=== PATIENT | male | born 1985 | race Caucasian/White ===

== ENCOUNTER → 2020-09-05 13:42 | Outpatient (BNVA) | payer BC, SELFPAY | PROVIDERS: Visit Provider Psychiatry & Neurology Psychiatry | DX: F43.9 Reaction to severe stress, unspecified (principal); F10.20 Alcohol dependence, uncomplicated; F40.10 Social phobia, unspecified | CPT/HCPCS: 80053; 85025; 99204 ==

== ENCOUNTER → 2020-10-12 08:37 | Outpatient (BNVA) | payer BC, SELFPAY | PROVIDERS: Visit Provider Psychiatry & Neurology Psychiatry | DX: F43.9 Reaction to severe stress, unspecified (principal); F40.10 Social phobia, unspecified; F10.20 Alcohol dependence, uncomplicated | CPT/HCPCS: 99214 ==

== ENCOUNTER → 2020-12-07 10:07 | Outpatient (BNVA) | payer BC, SELFPAY | PROVIDERS: Visit Provider Psychiatry & Neurology Psychiatry | DX: F40.10 Social phobia, unspecified (principal); F43.9 Reaction to severe stress, unspecified; F10.20 Alcohol dependence, uncomplicated | CPT/HCPCS: 99213 ==

== ENCOUNTER → 2021-04-02 08:30 | Outpatient (BNVA) | payer BC, SELFPAY | PROVIDERS: Visit Provider Psychiatry & Neurology Psychiatry | DX: F43.9 Reaction to severe stress, unspecified (principal); F40.10 Social phobia, unspecified; F10.20 Alcohol dependence, uncomplicated | CPT/HCPCS: 99213 ==

== ENCOUNTER 2021-09-06 16:29 | Inpatient (IN) | payer BC, SELFPAY ==
[2021-09-06 16:31] VITALS: BP 160/110; PULSE 130; RESP 15; TEMP 37.1; O2SAT 97; BMI 24.4
[2021-09-06 16:41] VITALS: BP 160/110; PULSE 120; RESP 15; O2SAT 97
[2021-09-06] MEDS: LORazepam 2 mg/mL INJ 1 mL IM (17:05)
[2021-09-06] MEDS: ziprasidone 20 mg/mL SDV IM (17:05)
[2021-09-06 17:10] LABS: Basophils # 0.1 10^3/uL (0.0-0.1); Basophils % 0.7 %; Eosinophils % 0.2 %; Hematocrit 43.6 % (42.0-52.0); Lymphocytes # 2.7 10^3/uL (0.8-4.8); Lymphocytes % 19.7 %; Mean Corpuscular HGB Conc 36.7 g/dL (30.0-36.0); Mean Corpuscular Hemoglobin 35.3 pg (28.0-34.0); Mean Corpuscular Volume 96.2 fl (80-94); Monocytes # 1.1 10^3/uL (0.2-0.9); Monocytes % 7.9 %; Neutrophils # 9.61 10^3/uL (1.8-7.7); Neutrophils % 71.1 %; Nucleated Red Blood Cells % 0 %; Platelet Count 276 10^3/cmm (130-400); Red Blood Count 4.53 10^6/uL (4.1-5.3); Red Cell Distribution Width 12.4 % (12.1-15.1); White Blood Count 13.5 10^3/uL (4.0-10.0)
--- NOTE | 2021-09-06 17:11 | W.ED.PSYCH ---
HPI - Psych General: Chief Complaint: Psychiatric Symptoms Stated Complaint: SI Time Seen by Provider: 09/06/21 16:35 History of Present Illness: HPI Narrative: 36-year-old male presents to the emergency room brought in by [facility]. They are 96-hour hold from the local [address]. Patient is acutely intoxicated he continues to make suicidal threats while here. Before a physician could go to the room and evaluate him security was monitoring him and he became very aggressive. Code 10 was called when I arrived in the room patient was making threats to others as well as to himself including threatening to kill himself. Explained to him that we wanted to try to help him. Ultimately we did give him Geodon and Ativan and he was placed in the restraint bed see the appropriate documentation in this chart as well as in the nursing chart. We were able to verbally de-escalate with him to some extent after he was placed in the restraint bed. He is still not safe to be removed at this time. Third 96-hour hold reviewed. According to the affidavits he has threatened to shoot himself in the past his family has had his firearms. MD complaint: suicidal ideation Onset (ago): unknown History of same: Yes Relieving factors: none Exacerbating factors: none Context: recent alcohol abuse Associated psychiatric symptoms: depression, suicidal ideation and homicidal ideation Associated symptoms: Reports depression, homicidal ideation and suicidal ideation; Deny auditory hallucinations, visual hallucinations or delusions Treatments prior to arrival: placed on mental health hold If self harm: admits thoughts of self harm and has plan Review of Systems General: Reports: ROS unobtainable due to mental status Psych: Reports: depression, suicidal ideation and homicidal ideation; Denies: visual hallucinations or auditory hallucinations [facility] ED PFSH: Social History Smoking and tobacco status: current every day smoker cigarettes Packs smoked per day: 1 Years cigarettes smoked: 20 Quit status (tobacco): not considering quitting Second hand smoke exposure: No Current gender identity: Male Physical Exam Const: ORIENTATION/CONSCIOUSNESS: Yes awake HENMT: COMMON NORMALS: normocephalic, atraumatic and hearing grossly normal bilaterally HEAD & SCALP: normocephalic and atraumatic Resp: COMMON NORMALS: normal respiratory effort, No retractions, No use of accessory muscles and clear to auscultation bilaterally AUSCULTATION: clear to auscultation bilaterally Cardio: COMMON NORMALS: regular rate, regular rhythm and No murmurs present (Cardio) RATE: regular rate RHYTHM: regular rhythm GI: COMMON NORMALS: Soft to palpation and No hepatosplenomegaly present AUSCULTATION: Yes normoactive bowel sounds PALPATION: Yes Soft to palpation, No Tenderness to palpation present (GI), No Guarding due to palpation present (GI) and Yes No hepatosplenomegaly present Extremity: COMMON NORMALS: normal to inspection, capillary refill normal, no clubbing, cyanosis or edema, no calf tenderness and no pedal edema Psych: THOUGHT CONTENT: No delusions Skin: COMMON NORMALS: no rashes or lesions noted GENERAL SKIN EXAM: no rashes or lesions noted Face to Face: Restrn/Seclusion Events leading up to initiation: Verbalizing threat to self or others and Combative/Striking out at staff or others Evaluation of patient's immediate situation: Alert and oriented and No signs of physical distress Patient reaction since intervention applied: Continued attempts/displays harmful behavior Recent labs reviewed: Yes Review of medications: Yes Patient's current medical/behavioral condition: No new concerns since last ROS Need for restraint or seclusion is: Continued Attending notified: Yes Course Vital Signs: Vital signs: Vital Signs Temperature 98.2 F 09/07/21 13:43 Pulse Rate 105 H 09/07/21 13:43 Respiratory Rate 18 09/07/21 13:43 Blood Pressure 179/100 09/07/21 13:43 Pulse Oximetry 96 09/07/21 13:43 MDM - Psych MDM Narrative: Medical decision making narrative: Patient is a 96-hour hold prior to arrival here. He was combative and a code 10 was called. He was placed in a restraint bed and given Ativan and Geodon restraints were scaled back once patient was compliant. He was monitored I went back to check on him for a status evaluation he was out of the hard restraints and was sedate from the medications. He was placed on O2 monitor. Discussed the Altman orders written. Lab Data: Labs: Lab Results 09/06/21 09/06/21 16:58 16:58 WBC 13.5 10^3/uL H 10 ^3/uL (4.0-10.0) RBC 4.53 10^6/uL 10^6 /uL (4.1-5.3) Hgb 16.0 g/dL g/dL (11.7-16.6) Hct 43.6 % % (42.0-52.0) MCV 96.2 fl H fl (80-94) MCH 35.3 pg H pg (28.0-34.0) MCHC 36.7 g/dL H g/dL (30.0-36.0) RDW 12.4 % % (12.1-15.1) Plt Count 276 10^3/cmm 10^3 /cmm (130-400) MPV 10.0 fL fL (7.4-10.4) Neut % (Auto) 71.1 % % Lymph % (Auto) 19.7 % % [place] % (Auto) 7.9 % % Eos % (Auto) 0.2 % % Baso % (Auto) 0.7 % % Neut # (Auto) 9.61 10^3/uL H 10 ^3/uL (1.8-7.7) Lymph # (Auto) 2.7 10^3/uL 10^3/ uL (0.8-4.8) [place] # (Auto) 1.1 10^3/uL H 10^ 3/uL (0.2-0.9) Eos # (Auto) 0.0 10^3/uL 10^3/ uL (0.0-0.8) Baso # (Auto) 0.1 10^3/uL 10^3/ uL (0.0-0.1) Nucleated RBC % (a uto) 0 % % Nucleated RBCs # 0.0 /100WBC /100W BC Sodium 141 mmol/L mmol/L (136-145) Potassium 3.2 mmol/L L mmol /L (3.5-5.1) Chloride 99 mmol/L mmol/L (98-107) Carbon Dioxide 26 mmol/L mmol/L (22-29) Anion Gap 19.2 H (5-19) BUN 9 mg/dL mg/dL (6-20) Creatinine 0.5 mg/dL L mg/dL (0.7-1.2) GFR Calculation 189.2 mL/min H mL /min (90-130) Glucose 197 mg/dL H mg/dL (65-115) Calculated Osmolal ity 296 mOsm/kg H mOs m/kg (285-295) Calcium 9.4 mg/dL mg/dL (8.5-10.5) Total Bilirubin 0.2 mg/dL mg/dL (0.15-1.2) AST 31 U/L U/L (0-40) ALT 38 U/L U/L (0-41) Alkaline Phosphata se 79 IU/L IU/L (40-130) Total Protein 7.2 g/dL g/dL (6.6-8.7) Albumin 4.7 g/dL g/dL (3.5-5.2) Globulin 2.5 g/dL g/dL (1.3-4.6) Salicylates < 0.3 mg/dL L mg/ dL (3-10) Acetaminophen < 5.0 ug/mL L ug/ mL (10-30) Ethyl Alcohol 405 mg/dL H* mg/d L (0-10) Discharge Plan Discharge Patient Disposition: Admitted As Inpatient Admit Provider: Josh Altman Clinical Impression: Suicidal ideation, Acute alcohol intoxication Condition: Stable Coding Level of Care Code ED Rubber Press Operator for Therese Fwd Exam Comprehensive
--- NOTE | 2021-09-06 17:13 | PC.NURSE ---
Patient was attempting to leave his room, PSA attempted to redirect patient back into the room. Security was around the room and attempted to redirect patient to the room. Patient attempted to push passed Security. Security had to utilize the safe technique to get patient into the room, onto the bed. Security called for a code 10 to be called. Code 10 called at 1702. When this RN entered the room Dr. Ramos, and secuirty was manually holding patient on the bed, and protecting his head from injury. Dr. Ramos was attempting to calm patient. Patient began cursing and stating that he was going to nilam us all for keeping him in. Patient was assisted on to the restraint bed at 1705. Verbal order given for 20mg of Geodon and 2 mg of Ativan. 20mg of Geodon in left deltoid and 2mg Ativan to right deltoid.
--- NOTE | 2021-09-06 17:14 | ECG_ITS ---
[facility] Test Date: 2021-09-06 Pat Name: Gaurang Fan Department: Room: Gender: Male Tie Bucker: : 1985 Requested By: Trev Serrano Order Number: [id number] Maida MD: Bautista Moreno M.D. Measurements Intervals [place] Rate: 106 P: 43 FL: 120 QRS: -11 QRSD: 95 T: 33 QT: 339 QTc: 450 Interpretive Statements SINUS TACHYCARDIA POSSIBLE LEFT ATRIAL ENLARGEMENT [-0.1mV P-WAVE IN V1/V2] POSSIBLE LEFT VENTRICULAR HYPERTROPHY [VOLTAGE CRITERIA PLUS LAE OR QRS WIDENING] NONSPECIFIC T-WAVE ABNORMALITY No previous ECG available for comparison Electronically Signed On 09-06-2021 23:57:29 CDT by Bautista Moreno M.D. [id number]
[2021-09-06 17:25] LABS: Alanine Aminotransferase 38 U/L (0-41); Albumin Level 4.7 g/dL (3.5-5.2); Alkaline Phosphatase 79 IU/L (40-130); Anion Gap 19.2 (5-19); Aspartate Amino Transferase 31 U/L (0-40); Blood Urea Nitrogen 9 mg/dL (6-20); Calcium 9.4 mg/dL (8.5-10.5); Carbon Dioxide 26 mmol/L (22-29); Chloride 99 mmol/L (98-107); Globulin 2.5 g/dL (1.3-4.6); Glomerular Filtration Rate 189.2 mL/min (90-130); Glucose 197 mg/dL (65-115); Osmolality Calculated 296 mOsm/kg (285-295); Potassium 3.2 mmol/L (3.5-5.1); Sodium 141 mmol/L (136-145); Total Bilirubin 0.2 mg/dL (0.15-1.2); Total Protein 7.2 g/dL (6.6-8.7)
[2021-09-06 17:29] LABS: Acetaminophen < 5.0 ug/mL (10-30); Salicylate < 0.3 mg/dL (3-10)
[2021-09-06 17:30] LABS: Alcohol Level 405 mg/dL (0-10)
[2021-09-06] MEDS: sodium chloride 0.9% 1,000 ML 999 ML IV (18:23)
--- NOTE | 2021-09-06 18:47 | PC.NURSE ---
Left leg released at 182
[2021-09-06 20:45] VITALS: BP 103/77; PULSE 76; RESP 16; O2SAT 100
[2021-09-06 21:35] LABS: Amphetamines Screen Urine Negative (Negative); Barbiturates Screen Urine Negative (Negative); Benzodiazepines Screen Urine Negative (Negative); Cocaine Screen Urine Negative (Negative); Opiate Screen Urine Negative (Negative); PCP Screen Urine Negative (Negative); THC Screen Urine Positive (Negative)
[2021-09-06 22:00] VITALS: BP 166/64; PULSE 74; RESP 16; O2SAT 96
[2021-09-06 23:00] VITALS: BP 106/64; PULSE 68; RESP 16; O2SAT 95
[2021-09-06 23:28] LABS: Alcohol Level 217 mg/dL (0-10)
[2021-09-06 23:56] VITALS: BP 106/64; PULSE 68; RESP 16; O2SAT 95
[2021-09-07 00:19] VITALS: BP 103/67; PULSE 84; RESP 16; TEMP 37.1; O2SAT 95
[2021-09-07] MEDS: lisinopril 20 mg Tablet PO ×3 (01:25→10:05)
[2021-09-07 06:00] VITALS: BP 151/95; PULSE 114; RESP 17; TEMP 36.9; O2SAT 97
[2021-09-07] MEDS: multivitamin therapeutic Tablet 1 TAB PO (09:54)
[2021-09-07] MEDS: folic acid 1 mg Tablet PO (09:54)
[2021-09-07] MEDS: thiamine 100 mg Tablet PO (09:54)
--- NOTE | 2021-09-07 11:42 | PM.NHP ---
Providers/Chief Complaint Admitting Physician: Josh Altman MD Chief Complaint: SI HPI NPU History of Present Illness Gaurang Fan is a 36 year old male history of trauma and social anxiety along with moderate alcohol use and marijuana disorders and psychiatric medication noncompliance, who was admitted on a 96-hour hold last night because he was brought in by law enforcement intoxicated, belligerent, and making suicidal threats. The note from the ED states: 36-year-old male presents to the emergency room brought in by [facility]. They are 96-hour hold from the local [address]. Patient is acutely intoxicated he continues to make suicidal threats while here. Before a physician could go to the room and evaluate him security was monitoring him and he became very aggressive. Code 10 was called when I arrived in the room patient was making threats to others as well as to himself including threatening to kill himself. Explained to him that we wanted to try to help him. Ultimately we did give him Geodon and Ativan and he was placed in the restraint bed see the appropriate documentation in this chart as well as in the nursing chart. We were able to verbally de-escalate with him to some extent after he was placed in the restraint bed. He is still not safe to be removed at this time. Third 96-hour hold reviewed. According to the affidavits he has threatened to shoot himself in the past his family has had his firearms. The patient does not remember the events of last night. He does not remember saying he was going to kill himself. He says that he does not want to kill himself today. He is still quite shaky coming down on alcohol. He says he drank 1 pint of whiskey yesterday, but that is not likely given that his BAL was 405 when he arrived in the emergency room. I told him that level could be lethal to some people. He says he has been feeling quite depressed since his mother suddenly of a pulmonary embolism on 08/03/2021. He says he could look at pictures of her. He had poor sleep and weight loss. He said that his energy and motivation were okay and he denied feelings of helplessness, hopelessness or worthlessness. He also denied feeling suicidal over the past several weeks. The patient says that his gave him some of her Lexapro over the past 2+ weeks. He says initially it caused his head to swim, caused nausea, and he felt that people were talking about him. After a few days those side effects went away. He said that his grief about his mother's began to improve too. For instance, he was able to start looking at pictures of his mom. He denies any history of auditory or visual hallucinations. The patient denies any previous psychiatric treatment, however records indicate that he has seen Dr. Jorge Serrano at the [facility], with the last visit on 04/02/2021. Dr. Serrano had prescribed acamprosate but the patient had stopped taking it. He was drinking 1/2 pint or less of alcohol. He started using marijuana medical marijuana 2 or [address] Serrano discussed the problems with marijuana use and encouraged him to reconsider taking acamprosate. The patient indicated that he did not want to continue any treatment at that point. The patient denies any previous rehabilitation treatment for alcohol problems and says he has no history of DUI. He does say he has been drinking a pint of whiskey a day and gets shaky and sweaty if he stops drinking for a day. He denies any history of seizures or hallucinations. He says he also smokes marijuana daily. He denies methamphetamines and other drugs. He says he smokes 1 pack of cigarettes per day. This is a televisit for safety precautions related to coronavirus recommendations, I spent a total 15 minutes on his case today. He tells me that he has not been compliant with medications and he has not taken it in a couple months now. His sleep is 6 to 7 hours a night, he says he does drink alcohol once or twice a week and usually drinks 1/2 pint or less. He tells me that the taste of alcohol was not seem anymore, and I told him that that may be due to the acamprosate. He denies any suicidal or homicidal thoughts, he did acknowledge that he has been getting medical marijuana and uses it 2-3 times a week. We did discuss the problems with marijuana use and the tolerance and dependence risk associated with it along with cognitive decline. I encouraged him to reconsider the acamprosate if his alcohol use escalates, otherwise he is not interested in scheduling or medications at this time Psychiatric history: As above. He denies any past psychiatric hospitalizations. Substance use history: As above. Family history: The patient says that his biological father reportedly had a history of bipolar disorder and dementia, but he did not know him. He said both of his brothers have been addicted to meth. 1 from suicide 3 or 4 years ago. The other is in fpc, but he does not know the reasons why. Psychosocial history: The patient says he was born in [place] and attended high school through the 11th grade here. He has dated his for 20 years and they have been for the past 4. They have children ages 16, 12, and 9 years old. 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 He likes that work because it is different every day. Legal history: He denies legal difficulties. Medical history: He says he takes lisinopril 20 mg daily for hypertension. He says he has had a vasectomy. Meds NPU Home Medications Medication Instructions Recorded Confirmed Last Taken Type lisinopril 20 mg tablet 20 mg PO DAILY 08/16/20 09/06/21 Unknown History Allergies Allergy/AdvReac Type Severity Reaction Status Date / Time No Known Allergies Allergy Verified 03/30/21 14:42 PFS NPU PFSH: Social History Smoking and tobacco status: current every day smoker cigarettes Packs smoked per day: 1 Years cigarettes smoked: 20 Quit status (tobacco): not considering quitting Second hand smoke exposure: No Current gender identity: Male Mental Status Exam MSE Comments: I met with the patient in his room with his door open, and he was dressed in hospital scrubs and somewhat sloppily groomed. He was shaky and kept working on a form that he had been filling out when I entered. He only occasionally looked up to answer my questions. Calm, cooperative, interactive, and made good eye contact. He has psychomotor agitation. Speech is somewhat tremulous and halting. Alert, oriented to person, place, time, and situation Attention and concentration: He was able to spell the word WORLD correctly forwards and backwards Memory: He remembers 3/3 words immediately and 1/3 at 3 minutes. He knows the names of 4 of the past 5 presidents. Mood is depressed. Affect is anxious and a bit labile. Thought process is concrete. Thought content: No auditory or visual hallucinations, no suicidal ideation or homicidal ideation. No delusions or paranoia are noted. Insight and judgment are limited. He minimizes any psychiatric or alcohol difficulties and does not report all of the information about his previous appointments at the [facility].. Impulse control is limited as well, especially when intoxicated. Vitals/I&O/Wt Last Vital Signs Temp 98.4 F 09/07/21 06:00 Pulse 114 H 09/07/21 06:00 Resp 17 09/07/21 06:00 BP 151/95 09/07/21 06:00 Pulse Ox 97 09/07/21 06:00 09/06/21 09/07/21 09/07/21 22:59 06:59 14:59 Intake Total 1000 / 1000 Balance 1000 / 1000 Weight last 48 hrs Weight 62.596 kg Data NPU : 09/06/21 16:58 09/06/21 16:58 A&P Assessment and plan (1) Major depressive disorder, recurrent, moderate: Status: Acute (2) Suicidal ideation: Status: Acute (3) Acute alcohol intoxication: Status: Acute (4) Trauma and stressor-related disorder: Status: Acute (5) Social anxiety disorder: Status: Acute (6) Alcohol use disorder, moderate, dependence: Status: Acute Additional A&P Information This is a 36 year old male history of trauma and social anxiety along with moderate alcohol use and marijuana disorders and psychiatric medication noncompliance, who was admitted on a 96-hour hold last night because he was brought in by law enforcement intoxicated, belligerent, and making suicidal threats. He has taken his 's Lexapro recently and says it has been helpful for him. He was previously seen by Dr. Jorge Serrano at [facility] for his alcohol use disorder, but stopped seeing him after March 2021. RECOMMENDATION AND PLAN: 1. Continue current medication. We will start Lexapro 10 mg daily. 2. Continue every 15 minute checks for safety. 3. Encourage individual, group and milieu therapies. 4. Encourage sober living treatment after discharge at the highest level of care to which he is willing to commit. Involuntary Hold Information 96 Hour Hold: 96 Hour Involuntary Admission: Yes Attestations NPU Medical Necessity Statement*: Psychiatric hospitalization is medically necessary to prevent access to lethal means, to reevaluate medication, and to coordinate a safe discharge. Patient will be in the hospital for over 2 midnights. Likely length of stay is 3 to 5 days. Coding Level of Care Code Acute Dinkey Locomotive Operator for g Fwd Diagnoses Major depressive disorder, recurrent, moderate F33.1 Suicidal ideation R45.851 Acute alcohol intoxication F10.929 Trauma and stressor-related disorder F43.9 Social anxiety disorder F40.10 Alcohol use disorder, moderate, dependence F10.20
--- NOTE | 2021-09-07 12:08 | NPU.GN ---
[facility] Unit Group Topic:Kilo General Mood of Group: Gaurang did not attend group this morning as he wanted to sleep.
[2021-09-07 13:43] VITALS: BP 179/100; PULSE 105; RESP 18; TEMP 36.8; O2SAT 96
[2021-09-07] MEDS: ondansetron 4 MG Tablet PO (13:53)
[2021-09-07] MEDS: acetaminophen 325 mg Tablet 650 MG PO (13:53)
[2021-09-07] MEDS: LORazepam 2 mg Tablet PO (13:53)
[2021-09-07] MEDS: nicotine 2 mg Gum BUCCAL (13:59)
[2021-09-07 20:18] VITALS: BP 162/99; PULSE 96; RESP 18; TEMP 36.9; O2SAT 97
--- NOTE | 2021-09-08 04:05 | PC.NURSE ---
Upon assessment this shift patient is lying in bed, awake with eyes closed. He is alert/oriented x4. He denied any depression or anxiety but then began crying and stating I just want to go home, I miss my kids and I don't want to miss Halloween with them. Also my wedding anniversary is Friday, I just want to go home, I don't want to spend the weekend here. Patient remained in bed and denied any requests or needs. Will continue to monitor and follow plan of care. Q 15 min safety checks per protocol.
[2021-09-08 06:00] VITALS: BP 153/108; PULSE 111; RESP 18; TEMP 36.7; O2SAT 98
[2021-09-08] MEDS: nicotine 2 mg Gum BUCCAL (08:56)
[2021-09-08] MEDS: thiamine 100 mg Tablet PO (08:56)
[2021-09-08] MEDS: multivitamin therapeutic Tablet 1 TAB PO (08:56)
[2021-09-08] MEDS: escitalopram 10 mg Tablet PO (08:56)
[2021-09-08] MEDS: lisinopril 20 mg Tablet PO (08:56)
[2021-09-08] MEDS: folic acid 1 mg Tablet PO (08:56)
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
[2021-09-08 10:30] VITALS: BP 153/108; PULSE 111; RESP 18; TEMP 36.7; O2SAT 98
--- NOTE | 2021-09-10 14:21 | PC.RESP ---
SMOKING CESSATION INFORMATION SENT TO PATIENT.
== END 2021-09-08 12:36 | disposition home or self-care (01) | DRG 885 ==
LOC: ER 18:57 → NP 18:58
PROVIDERS: Physician Assistant; Admitting Provider Psychiatry & Neurology Child & Adolescent Psychiatry; Emergency Provider Family Medicine; Visit Provider Psychiatry & Neurology Child & Adolescent Psychiatry
DX: F33.1 Major depressive disorder, recurrent, moderate (principal); R45.851 Suicidal ideations; F10.239 Alcohol dependence with withdrawal, unspecified; F40.10 Social phobia, unspecified; F10.229 Alcohol dependence with intoxication, unspecified; I10 Essential (primary) hypertension; F17.210 Nicotine dependence, cigarettes, uncomplicated; F12.90 Cannabis use, unspecified, uncomplicated; Z81.8 Family history of other mental and behavioral disorders; Z81.3 Family history of other psychoactive substance abuse and dependence; Y90.8 Blood alcohol level of 240 mg/100 ml or more; Z63.4 Disappearance and death of family member; Z91.14 Patient's other noncompliance with medication regimen; Z91.49 Other personal history of psychological trauma, not elsewhere classified
CPT/HCPCS: 36415; 80053; 80306; 80307; 85025; 93005; 96360; 96372; 97165; 99285; J2060; J3486; J7030; Q0162

== ENCOUNTER 2021-12-25 08:41 | Emergency (ER) | payer BC, SELFPAY ==
[2021-12-25 09:08] VITALS: BMI 26.5
[2021-12-25 09:13] VITALS: BP 151/97; PULSE 109; RESP 14; TEMP 36.6; O2SAT 96
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
[2021-12-25 09:33] VITALS: PULSE 100
--- NOTE | 2021-12-25 10:02 | PC.NURSE ---
PATIENT RESTING IN CHAIR, NAD.
[2021-12-25 11:13] VITALS: BP 150/95; PULSE 100; TEMP 36.6; O2SAT 96
--- NOTE | 2021-12-27 10:22 | DCPLANNER ---
Addendum entered by Ade Witt 01/04/22 15:10: Patient had a follow up appointment scheduled for 12.27.21 at ortho - patient did not attend appointment. Original Note: late entry - farrowing manager had message to schedule a follow up appointment for patient with ortho. farrowing manager called the ortho clinic on 12.26.21, spoke with Ava, gave clinic patients information. farrowing manager was told that patients information would be printed and reviewed. Clinic will call patient with appointment information.
== END 2021-12-25 11:10 | disposition home or self-care (01) ==
PROVIDERS: Emergency Provider Physician Assistant
DX: S62.234A Other nondisplaced fracture of base of first metacarpal bone, right hand, initial encounter for closed fracture (principal); S60.131A Contusion of right middle finger with damage to nail, initial encounter; F17.210 Nicotine dependence, cigarettes, uncomplicated; V09.20XA Pedestrian injured in traffic accident involving unspecified motor vehicles, initial encounter
CPT/HCPCS: 73130; 99283; 99291; 99292

== ENCOUNTER 2024-09-08 02:18 | Inpatient (IN) | payer SELFPAY ==
[2024-09-08 02:20] VITALS: BP 146/102; PULSE 130; RESP 18; TEMP 37.1; O2SAT 97; BMI 19.2
--- NOTE | 2024-09-08 02:47 | ED.C_ITS ---
HPI - Psych 2 General: Chief Complaint: Psychiatric Symptoms Stated Complaint: hearing and seeing things Time Seen by Provider: 09/08/24 02:28 History of Present Illness: 39-year-old man who presents to the [facility] room with police actively hallucinating and admitting to having used drugs recently. He has flight of ideas and is fairly nonsensical. He says that he wants to report somebody's murder. Otherwise unable to obtain much history. He does seem to be so altered that he likely is a danger to himself. The police agree. Related Data Home Medications Medication Instructions Recorded Confirmed trazodone 50 mg tablet 25 mg PO DAILY PRN insomnia 11/30/21 11/30/21 Previous Rx's Medication Instructions Recorded lisinopril 20 mg tablet 20 mg PO DAILY 30 days #30 tabs 09/08/21 escitalopram oxalate 20 mg tablet 20 mg PO DAILY #30 tabs 11/30/21 (Lexapro) naltrexone 50 mg tablet 50 mg PO DAILY #30 tabs 11/30/21 Allergies Allergy/AdvReac Type Severity Reaction Status Date / Time No Known Allergies Allergy Verified 09/08/24 02:24 Review of Systems 2 General: Reports: ROS unobtainable due to medical condition and ROS unobtainable due to mental status PFS ED 2 PFSH: Medical History No pertinent family history Surgical History No pertinent past surgical history Social History Smoking and tobacco/nicotine status: current every day tobacco/nicotine user cigarettes Packs smoked per day: 1 Years cigarettes smoked: 20 Quit status (tobacco/nicotine): not considering quitting Second hand smoke exposure: No Current gender identity: Male Physical Exam 2 Narrative: EXAM NARRATIVE: General: Alert. no acute distress Skin: Warm, dry Head: Normocephalic, atraumatic. Neck: Supple, trachea midline. Eye: Extraocular movements are intact. Ears, nose, mouth and throat: Oral mucosa moist. Cardiovascular: Regular rate and rhythm, Normal peripheral perfusion. Respiratory: Lungs are clear to auscultation, respirations are non-labored, breath sounds are equal, Symmetrical chest wall expansion. Gastrointestinal: Soft, Nontender, Non distended, Normal bowel sounds. Musculoskeletal: Normal ROM, no deformity. Neurological: Not Alert and oriented to person, place, time, and situation, No focal neurological deficit observed. Psychiatric: confused, agitated. flight of ideas Course 2 Vital Signs: Vital signs: Vital Signs Temperature 98.7 F 09/08/24 02:20 Pulse Rate 130 H 09/08/24 02:20 Respiratory Rate 18 09/08/24 02:20 Blood Pressure 146/102 09/08/24 02:20 Pulse Oximetry 97 09/08/24 02:20 Oxygen Delivery Me thod Room Air 09/08/24 02:20 MDM - Psych Medical Decision Making Medical decision making: Differential diagnosis for patient with reported psychosis with plan for psychiatric admission including but not limited to and based on the above HPI, review of systems and physical exam: concerns for infection, alcohol intoxication, cardiac issues or other medical problems prior to psychiatric admission. Orders placed to evaluate differential diagnosis based on the above differential, HPI and physical exam labwork, ekg ordered to evaluate the pathologies and to clear the patient medically prior to psychiatric admission Lab Review: Laboratory results were reviewed and interpreted by myself the emergency room physician. - Medically cleared. - EKG shows no ischemic changes. - Blood alcohol level is negative, as well as salicylate and Tylenol. ?Drug screen and urinalysis are still pending. - No anemia. - BUN BUN is a little bit elevated and the patient does look somewhat dehydrated. He is now drinking some fluids in the emergency room. I reviewed the patient's medical record. Consultation: I spoke with Dr. Hendrix who is on-call for the psychiatry service and he agrees to admission. Assessment and plan: Psychosis Auditory hallucinations Drug use ?96-hour hold placed. Please felt he is likely a danger to himself and I agree that he is in no condition to be released. ? IM Ativan and IM Geodon in the emergency room. -Admission to neuropsychiatric unit for continued evaluation and treatment. - All lab work was reviewed and interpreted personally by myself, the ER physician - Evaluation and treatment of this problem were appropriate in the emergency setting Lab Data 09/08/24 02:46 09/08/24 02:46 Laboratory Results WBC 11.32 10^3/uL (3.29-11.43) 09/08/24 02:46 RBC 4.96 10^6/uL (3.85-5.65) 09/08/24 02:46 Hgb 15.50 g/dL (11.27-16.99) 09/08/24 02:46 Hct 44.2 % (37-53) 09/08/24 02:46 MCV 89.1 fl (82-101) 09/08/24 02:46 MCH 31.3 pg (27-33) 09/08/24 02:46 MCHC 35.1 g/dL (30-55) 09/08/24 02:46 RDW 12.9 % (12.1-15.1) 09/08/24 02:46 Plt Count 344 10^3/cmm (157-399) 09/08/24 02:46 MPV 9.6 fL (7.4-10.4) 09/08/24 02:46 Neut % (Auto) 77.9 % 09/08/24 02:46 Lymph % (Auto) 13.1 % 09/08/24 02:46 Baker % (Auto) 7.6 % 09/08/24 02:46 Eos % (Auto) 0.2 % 09/08/24 02:46 Baso % (Auto) 0.8 % 09/08/24 02:46 Neut # (Auto) 8.83 10^3/uL (1.8-7.7) H 09/08/24 02:46 Lymph # (Auto) 1.5 10^3/uL (0.8-4.8) 09/08/24 02:46 Baker # (Auto) 0.9 10^3/uL (0.2-0.9) 09/08/24 02:46 Eos # (Auto) 0.0 10^3/uL (0.0-0.8) 09/08/24 02:46 Baso # (Auto) 0.1 10^3/uL (0.0-0.1) 09/08/24 02:46 Nucleated RBC % (auto) 0 % 09/08/24 02:46 Nucleated RBCs # 0.0 /100WBC 09/08/24 02:46 Sodium 136 mmol/L (136-145) 09/08/24 02:46 Potassium 3.3 mmol/L (3.5-5.1) L 09/08/24 02:46 Chloride 93 mmol/L (98-107) L 09/08/24 02:46 Carbon Dioxide 22 mmol/L (22-29) 09/08/24 02:46 Anion Gap 24.3 (5-19) H 09/08/24 02:46 BUN 32 mg/dL (6-20) H 09/08/24 02:46 Creatinine 1.0 mg/dL (0.7-1.2) 09/08/24 02:46 GFR Calculation 83.6 mL/min (90-130) L 09/08/24 02:46 Glucose 80 mg/dL (65-115) 09/08/24 02:46 Calculated Osmolality 288 mOsm/kg (285-295) 09/08/24 02:46 Calcium 9.6 mg/dL (8.5-10.5) 09/08/24 02:46 Total Bilirubin 2.1 mg/dL (0.15-1.2) H 09/08/24 02:46 AST 48 U/L (0-40) H 09/08/24 02:46 ALT 22 U/L (0-41) 09/08/24 02:46 Alkaline Phosphatase 91 U/L (40-130) 09/08/24 02:46 Total Protein 8.3 g/dL (6.6-8.7) 09/08/24 02:46 Albumin 5.2 g/dL (3.5-5.2) 09/08/24 02:46 Globulin 3.1 g/dL (1.3-4.6) 09/08/24 02:46 TSH 2.23 uIU/mL (0.27-4.20) 09/08/24 02:46 Salicylates < 0.3 mg/dL (3-10) L 09/08/24 02:46 Acetaminophen < 5.0 ug/mL (10-30) L 09/08/24 02:46 Ethyl Alcohol < 10 mg/dL (0-10) 09/08/24 02:46 No radiology studies performed this visit Discharge Plan Discharge Patient Disposition: Admitted As Inpatient Admit Provider: Pedro Hendrix Clinical Impression: Drug-induced psychotic disorder, Hallucinations Condition: Stable Coding Level of Care Code ED Cuff Maker for Therese Maier
[2024-09-08 02:50] LABS: Basophils # 0.1 10^3/uL (0.0-0.1); Basophils % 0.8 %; Eosinophils % 0.2 %; Hematocrit 44.2 % (37-53); Lymphocytes # 1.5 10^3/uL (0.8-4.8); Lymphocytes % 13.1 %; Mean Corpuscular HGB Conc 35.1 g/dL (30-55); Mean Corpuscular Hemoglobin 31.3 pg (27-33); Mean Corpuscular Volume 89.1 fl (82-101); Mean Platelet Volume 9.6 fL (7.4-10.4); Monocytes # 0.9 10^3/uL (0.2-0.9); Monocytes % 7.6 %; Neutrophils # 8.83 10^3/uL (1.8-7.7); Neutrophils % 77.9 %; Nucleated Red Blood Cells % 0 %; Platelet Count 344 10^3/cmm (157-399); Red Blood Count 4.96 10^6/uL (3.85-5.65); Red Cell Distribution Width 12.9 % (12.1-15.1); White Blood Count 11.32 10^3/uL (3.29-11.43)
--- NOTE | 2024-09-08 02:51 | PC.NURSE ---
96 HH Pt served with copy of 96 HH by this RN and security. Pt alert and not oriented. Pt states, while looking at me she just said she had HIV, did you hear that too? Pt then looks at ceiling and is talking to unseen person she took the jelly fish .
[2024-09-08] MEDS: LORazepam 2 mg/mL INJ 1 mL IM (02:57)
[2024-09-08] MEDS: ziprasidone 20 mg/mL SDV IM (02:57)
[2024-09-08] MEDS: water for injection-sterile 10 ML (02:58)
--- NOTE | 2024-09-08 03:13 | ECG_ITS ---
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 Measurements Intervals [place] Rate: 102 P: 66 OH: 138 QRS: 39 QRSD: 90 T: 34 QT: 348 QTc: 454 Interpretive Statements SINUS TACHYCARDIA POSSIBLE LEFT ATRIAL ENLARGEMENT [-0.1mV P-WAVE IN V1/V2] ABNORMAL RHYTHM ECG Compared to ECG 09/06/2021 17:33:08 T-wave abnormality no longer present Electronically Signed On 09-08-2024 16:44:39 CDT by Abel Presley M.D. [id number]
[2024-09-08 03:18] LABS: Acetaminophen < 5.0 ug/mL (10-30); Alanine Aminotransferase 22 U/L (0-41); Albumin Level 5.2 g/dL (3.5-5.2); Alcohol Level < 10 mg/dL (0-10); Alkaline Phosphatase 91 U/L (40-130); Anion Gap 24.3 (5-19); Aspartate Amino Transferase 48 U/L (0-40); Blood Urea Nitrogen 32 mg/dL (6-20); Calcium 9.6 mg/dL (8.5-10.5); Carbon Dioxide 22 mmol/L (22-29); Chloride 93 mmol/L (98-107); Creatinine Clr Calc Pharmacy 73.3986; Globulin 3.1 g/dL (1.3-4.6); Glomerular Filtration Rate 83.6 mL/min (90-130); Glucose 80 mg/dL (65-115); Osmolality Calculated 288 mOsm/kg (285-295); Potassium 3.3 mmol/L (3.5-5.1); Salicylate < 0.3 mg/dL (3-10); Sodium 136 mmol/L (136-145); Thyroid Stimulating Hormone 2.23 uIU/mL (0.27-4.20); Total Bilirubin 2.1 mg/dL (0.15-1.2); Total Protein 8.3 g/dL (6.6-8.7)
[2024-09-08 03:56] VITALS: BP 98/64; PULSE 92; RESP 16; TEMP 36.4; O2SAT 97
[2024-09-08 04:33] VITALS: BP 98/64; PULSE 92; RESP 16; TEMP 36.4; O2SAT 97
[2024-09-08 04:36] VITALS: BP 106/72; PULSE 96; RESP 14; O2SAT 97
[2024-09-08 07:45] LABS: Glucose Point of Care 61 mg/dL (70-110)
[2024-09-08 08:31] LABS: Glucose Point of Care 159 mg/dL (70-110)
[2024-09-08 14:00] VITALS: BP 102/64; PULSE 102; RESP 16; TEMP 36.4; O2SAT 100
[2024-09-08 17:32] LABS: Glucose Point of Care 95 mg/dL (70-110)
--- NOTE | 2024-09-08 18:02 | PC.NURSE ---
ADMIT NOTE PT WAS IN THE EMERGENCY ROOM WITH COMPLAINTS OF HALLUCINATIONS AND RECENT DRUG USE. UPON ADMIT TO THE NPU PT CONTINUES TO RESPOND TO INTERNAL STIMULI STATING I HEAR OTHER GODS AND PAO THROUGH THE JELLYFISH. PT STATES THAT HE HAS A JELLYFISH EITHER ON OR INSIDE HIS HEAD EVER SINCE HE TWICE FOR EARTH TO BECOME PAO. PT STATES I'M YOUR [facility]IE RAISER, I CAN RAISE 5O ANGELS FROM EACH OF MY LEGS. PT ALSO STATED TO THIS NURSE MY TRUE NAME IS LIVING GOD RAVINDRA BERNAL. PT STATED THAT HE WAS THE PERSON WHO CALLED THE AUTHORITIES TO HIS LOCATION BECAUSE COUSIN BRIDGETTE GIRALDO TOLD ME SOME GIRLS WERE BEING HURT AND SHOWED ME THEIR LOCATION. THE POLICE DIDN'T BELIEVE ME AND BROUGHT ME HERE. PT WAS COOPERATIVE WITH ASSESSMENT. PT CURRENTLY DENIES SI/HI. PT ENDORSES SUBSTANCE ABUSE SUCH METHAMPHETAMINE, MARIJUANA, AND OCCASIONAL ALCOHOL. PT CURRENT NEEDS ARE MET AT THIS TIME.
--- NOTE | 2024-09-08 18:05 | W.PM.NPUH&PS ---
Providers/Chief Complaint Admitting Physician: Pedro Hendrix MD Chief Complaint: hearing and seeing things HPI NPU History of Present Illness Gaurang Fan is a 39 year old male who was brought to the emergency room accompanied by police after he had admitted to having used illicit drugs and appearing significantly confused. The patient was admitted involuntarily to the neuropsychiatric unit for further evaluation and treatment. The patient had stated that he was picked up by the police because he had made a complaint that the neighbors were involved in evil actions. The patient had reported that he is Tyson God and has control of . He reports that he has angels working for him and asked the comic book writer of this note if he was not Pro. The patient reports that his aunt Kaylin Zurita has a jellyfish on her head that allows her to read and control the thoughts of others. He stated that everyone on the news or trying to poison him and stated that they were also trying to extract his blood. The patient is also stated that he was the lost son of Lindsay as he alluded to specific markings on his thumb that indicated a commonality of origin. The patient's urine drug screen had not been drawn at this time. He reports currently not being on medications. Inpatient psychiatric history: There appears to be a past history of inpatient psychiatric hospitalization here 3 years ago. Outpatient psychiatric history: None reported Medical history: None reported Surgical history: vasectomy. Current medications: None Substance abuse history: Previous history of noted alcohol abuse along with methamphetamine abuse. There have been reported history of alcohol dependence with withdrawal symptoms. Family psychiatric history: Reported history of bipolar disorder in biological father per previous records also history of polysubstance abuse and 2 of his siblings. Legal history: Unknown Social history: Previous records indicate the patient was born in [place] and had completed up to 11th grade here. He had reported having previously been but is currently . He has children allegedly that live in [place] with their mother. He is currently unemployed. NPU Discharge summary from 09/08/21 SI Brief History: Gaurang Fan is a 36 year old male history of trauma and social anxiety along with moderate alcohol use and marijuana disorders and psychiatric medication noncompliance, who was admitted on a 96-hour hold last night because he was brought in by law enforcement intoxicated, belligerent, and making suicidal threats. The note from the ED states: 36-year-old male presents to the emergency room brought in by [facility]. They are 96-hour hold from the local [place] [address]. Patient is acutely intoxicated he continues to make suicidal threats while here. Before a physician could go to the room and evaluate him security was monitoring him and he became very aggressive. Code 10 was called when I arrived in the room patient was making threats to others as well as to himself including threatening to kill himself. Explained to him that we wanted to try to help him. Ultimately we did give him Geodon and Ativan and he was placed in the restraint bed see the appropriate documentation in this chart as well as in the nursing chart. We were able to verbally de-escalate with him to some extent after he was placed in the restraint bed. He is still not safe to be removed at this time. Third 96-hour hold reviewed. According to the affidavits he has threatened to shoot himself in the past his family has had his firearms. The patient does not remember the events of last night. He does not remember saying he was going to kill himself. He says that he does not want to kill himself today. He is still quite shaky coming down on alcohol. He says he drank 1 pint of whiskey yesterday, but that is not likely given that his BAL was 405 when he arrived in the emergency room. I told him that level could be lethal to some people. He says he has been feeling quite depressed since his mother suddenly of a pulmonary embolism on 08/03/2021. He says he could look at pictures of her. He had poor sleep and weight loss. He said that his energy and motivation were okay and he denied feelings of helplessness, hopelessness or worthlessness. He also denied feeling suicidal over the past several weeks. The patient says that his gave him some of her Lexapro over the past 2+ weeks. He says initially it caused his head to swim, caused nausea, and he felt that people were talking about him. After a few days those side effects went away. He said that his grief about his mother's began to improve too. For instance, he was able to start looking at pictures of his mom. He denies any history of auditory or visual hallucinations. The patient denies any previous psychiatric treatment, however records indicate that he has seen Dr. Jorge Serrano at the [facility], with the last visit on 04/02/2021. Dr. Serrano had prescribed acamprosate but the patient had stopped taking it. He was drinking 1/2 pint or less of alcohol. He started using marijuana medical marijuana 2 or [address] Serrnao discussed the problems with marijuana use and encouraged him to reconsider taking acamprosate. The patient indicated that he did not want to continue any treatment at that point. The patient denies any previous rehabilitation treatment for alcohol problems and says he has no history of DUI. He does say he has been drinking a pint of whiskey a day and gets shaky and sweaty if he stops drinking for a day. He denies any history of seizures or hallucinations. He says he also smokes marijuana daily. He denies methamphetamines and other drugs. He says he smokes 1 pack of cigarettes per day. This is a televisit for safety precautions related to coronavirus recommendations, I spent a total 15 minutes on his case today. He tells me that he has not been compliant with medications and he has not taken it in a couple months now. His sleep is 6 to 7 hours a night, he says he does drink alcohol once or twice a week and usually drinks 1/2 pint or less. He tells me that the taste of alcohol was not seem anymore, and I told him that that may be due to the acamprosate. He denies any suicidal or homicidal thoughts, he did acknowledge that he has been getting medical marijuana and uses it 2-3 times a week. We did discuss the problems with marijuana use and the tolerance and dependence risk associated with it along with cognitive decline. I encouraged him to reconsider the acamprosate if his alcohol use escalates, otherwise he is not interested in scheduling or medications at this time Psychiatric history: As above. He denies any past psychiatric hospitalizations. Substance use history: As above. Family history: The patient says that his biological father reportedly had a history of bipolar disorder and dementia, but he did not know him. He said both of his brothers have been addicted to meth. 1 from suicide 3 or 4 years ago. The other is in long term, but he does not know the reasons why. Psychosocial history: The patient says he was born in [place] and attended high school through the 11th grade here. He has dated his for 20 years and they have been for the past 4. They have children ages 16, 12, and 9 years old. 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 He likes that work because it is different every day. Legal history: He denies legal difficulties. Medical history: He says he takes lisinopril 20 mg daily for hypertension. He says he has had a vasectomy. Meds NPU Home Medications Medication Instructions Recorded Confirmed Last Taken Type lisinopril 20 mg tablet 20 mg PO DAILY 30 days #30 tabs 09/08/21 11/30/21 Unknown Rx escitalopram oxalate 20 mg tablet 20 mg PO DAILY #30 tabs 11/30/21 11/30/21 Unknown Rx (Lexapro) naltrexone 50 mg tablet 50 mg PO DAILY #30 tabs 11/30/21 11/30/21 Unknown Rx trazodone 50 mg tablet 25 mg PO DAILY PRN insomnia 11/30/21 11/30/21 Unknown History Allergies Allergy/AdvReac Type Severity Reaction Status Date / Time No Known Allergies Allergy Verified 09/08/24 02:24 [facility] NPU PFS: Medical History No pertinent family history Surgical History No pertinent past surgical history Social History Smoking and tobacco/nicotine status: current every day tobacco/nicotine user cigarettes Packs smoked per day: 1 Years cigarettes smoked: 20 Quit status (tobacco/nicotine): not considering quitting Second hand smoke exposure: No Current gender identity: Male Mental Status Exam MSE Comments: The patient is a casually dressed white male who appeared his stated age. He had a disheveled appearance with extremely poor hygiene. There was no evidence of any abnormal involuntary motor movements, tics, or tremors appreciated. His speech was rapid in rate and normal in volume. His thought process was tangential. His thought content showed no evidence of homicidal or suicidal ideation. There was significant evidence of bizarre delusions, there is also evidence of grandiosity and significant ideas of reference and hyperreligiosity. He did not appear to be responding to internal stimuli. His mood was described as fine. His affect was irritable and labile. He was alert and oriented to person place and year. His recent and remote memory appeared poor. His insight is impaired. His judgment is poor. His impulse control appeared impaired as well. Vitals/I&O/Wt Last Vital Signs Temp 97.6 F 09/08/24 14:00 Pulse 102 H 09/08/24 14:00 Resp 16 09/08/24 14:00 BP 102/64 09/08/24 14:00 Pulse Ox 100 09/08/24 14:00 O2 Del Method Room Air 09/08/24 14:00 09/08/24 09/08/24 09/08/24 06:59 14:59 22:59 Intake Total Balance Weight last 48 hrs Weight 47.627 kg Data NPU 09/08/24 02:46 09/08/24 02:46 A&P Assessment and plan (1) Unspecified psychosis: (2) Drug-induced psychotic disorder: (3) Alcohol use disorder, moderate, dependence: Plan 39-year-old male who presents with florid psychosis and likely diana possibly substance-induced currently extremely paranoid and likely requiring acute inpatient hospitalization. #1.? Engage patient in individual milieu and group therapy. #2?? Recommend sober living treatment at the highest level of care to which the patient is willing to commit #3??? Trial of zyprexa to target psychosis. #4?? TO-15 minute checks? #5?? Will attempt to gather collateral information Involuntary Hold Information 96 Hour Hold: 96 Hour Involuntary Admission: Yes Attestations NPU Medical Necessity Statement*: Inpatient hospitalization is medically necessary and deemed to ?be ?the clinically appropriate intervention ?at this time.? We will monitor/initiate medications and make changes as indicated.? The patient will be in the hospital for over 2 midnights.? The patient?s likely length of stay 7-10 days. Coding Level of Care Code Acute Code for Chg Fwd Diagnoses Unspecified psychosis F29 Drug-induced psychotic disorder F19.959 Alcohol use disorder, moderate, dependence F10.20
[2024-09-08 20:09] VITALS: BP 134/78; PULSE 93; RESP 15; TEMP 36.7; O2SAT 99
[2024-09-08] MEDS: hyDROXYzine 25 mg Capsule 50 MG PO (21:31)
[2024-09-08] MEDS: trazodone 50 mg Tablet PO (21:31)
[2024-09-08] MEDS: OLANZapine 10 mg ODT PO (21:31)
[2024-09-09 06:00] VITALS: BP 107/68; PULSE 73; RESP 15; TEMP 36.4; O2SAT 99
[2024-09-09] MEDS: thiamine 100 mg Tablet PO (10:49)
[2024-09-09] MEDS: multivitamin therapeutic Tablet 1 TAB PO (10:50)
[2024-09-09] MEDS: folic acid 1 mg Tablet PO (10:50)
[2024-09-09 14:00] VITALS: BP 125/88; PULSE 79; RESP 16; TEMP 36.5; O2SAT 99
[2024-09-09] MEDS: nicotine 4 mg lozenge MUCOUS MEM ×3 (15:01→19:43)
--- NOTE | 2024-09-09 16:12 | P.NPUPN_ITS ---
Subjective NPU 2 Subjective: 39-year-old male currently involuntarily hospitalized with psychosis. The patient had slept better after taking his Zyprexa. He had continued to identify having special abilities and appeared preoccupied by angels and by thoughts that other people had been under his domain to rule. He had reported that he was a benevolent God. He had spent much of the day isolating himself and reported that his mood was great. Patient had admitted to having used methamphetamine stating that it helped him achieve a higher power. Mental Status Exam 2 MSE Comments: The patient is a casually dressed white male who appeared his stated age. He had a disheveled appearance with improved hygiene noted today. There was no evidence of any abnormal involuntary motor movements, tics, or tremors appreciated. His speech was normal in rate and normal in volume. His thought process was tangential and expansive. His thought content showed no evidence of homicidal or suicidal ideation. There was significant evidence of bizarre delusions, there is also evidence of grandiosity and significant ideas of reference and hyperreligiosity. He did not appear to be responding to internal stimuli. His mood was described as fine. His affect was odd and subdued today. He was alert and oriented to person place and year. His recent and remote memory appeared poor. His insight is impaired. His judgment is poor. His impulse control appeared impaired as well. Vitals/I&O/Wt Last Vital Signs Temp 97.5 F L 09/09/24 06:00 Pulse 73 09/09/24 06:00 Resp 15 09/09/24 06:00 BP 107/68 09/09/24 06:00 Pulse Ox 99 09/09/24 06:00 O2 Del Method Room Air 09/09/24 06:00 Weight last 48 hrs Weight 47.627 kg Data NPU 09/08/24 02:46 09/08/24 02:46 A&P Assessment and plan (1) Unspecified psychosis: (2) Drug-induced psychotic disorder: (3) Alcohol use disorder, moderate, dependence: Plan 39-year-old male who presents with florid psychosis and likely diana possibly substance-induced currently extremely paranoid and likely requiring acute inpatient hospitalization. #1.? Engage patient in individual milieu and group therapy. #2?? Recommend sober living treatment at the highest level of care to which the patient is willing to commit #3??? Continue Zyprexa 10mg at night. Consider switch to invega due to availability of depot shot. #4?? TO-15 minute checks? #5?? Will attempt to gather collateral information Involuntary Hold Information 2 96 Hour Hold: 96 Hour Involuntary Admission: Yes 96 Hour Hold Ending Date: 09/14/24 96 Hour Hold Ending Time: 02:40 Attestations NPU 2 Medical Necessity Statement*: Inpatient hospitalization is medically necessary and deemed to ?be ?the clinically appropriate intervention ?at this time.? We will monitor/initiate medications and make changes as indicated.? The patient?s likely length of stay 7-10 days. Coding Level of Care Code Acute Code for Chg Fwd Diagnoses Unspecified psychosis F29 Drug-induced psychotic disorder F19.959 Alcohol use disorder, moderate, dependence F10.20
[2024-09-09 18:11] LABS: Cocaine Screen Urine Negative (Negative); PCP Screen Urine Negative (Negative); THC Screen Urine Positive (Negative)
[2024-09-09 18:12] LABS: Amphetamines Screen Urine Positive (Negative); Barbiturates Screen Urine Negative (Negative); Benzodiazepines Screen Urine Positive (Negative); Opiate Screen Urine Negative (Negative)
[2024-09-09 18:25] LABS: Bacteria Urine None Seen /hpf; Bilirubin Urine Negative (Negative); Blood Urine Negative (Negative); Glucose Urine UA Negative (Normal); Hyaline Casts Urine 0.81 /lpf; Ketones Urine Negative (Negative); Leukocyte Esterase Urine Negative (Negative); Nitrate Urine Negative (Negative); Protein Urine Negative (Negative); RBC Urine 0-2 /hpf (0-2); Specific Gravity, Urine 1.023 (1.005-1.030); Squamous Epithelial Cell Urine 0-5 /hpf (0-5); Urine Appearance Clear (CLEAR); Urine Color Yellow (Yellow); WBC Urine 0-5 /hpf (0-5); pH Urine 5.5 (5-7)
[2024-09-09 18:31] LABS: Add Urine Culture? No
[2024-09-09 19:32] VITALS: BP 101/66; PULSE 86; RESP 18; TEMP 36.6; O2SAT 98
[2024-09-09] MEDS: OLANZapine 10 mg ODT PO (21:02)
[2024-09-10 05:56] VITALS: BP 100/65; PULSE 58; RESP 18; TEMP 36.4; O2SAT 100
[2024-09-10 08:31] VITALS: BP 106/63; PULSE 60; RESP 18; TEMP 36.4; O2SAT 99
[2024-09-10] MEDS: folic acid 1 mg Tablet PO (08:57)
[2024-09-10] MEDS: thiamine 100 mg Tablet PO (08:57)
[2024-09-10] MEDS: multivitamin therapeutic Tablet 1 TAB PO (08:58)
[2024-09-10] MEDS: nicotine 21 mg Patch 1 PATCH TRANSDERMA (08:59)
--- NOTE | 2024-09-10 09:51 | PC.NURSE ---
IN BED RESTING, AROUSES TO VOICE. DENIES SI/HI AND AVH AT THIS TIME. CIWA SCORE IS ZERO. DENIES ANY S/S OF ALCOHOL WITHDRAWAL AT THIS TIME. RATES ANXIETY 2/10 AND DEPRESSION 3/10. PT IS UPSET ABOUT 21 DAY BEING FILES AND STATES HE WANTS TO LEAVE. EDUCATION PROVIDED ON HOLD AND PT DID EVENTUALLY CALM. STAFF REPORTS PT IS HAVING DELUSIONS AND AT TIMES WILL RESPOND TO EXTERNAL STIMULI. ALL QUESTIONS ANSWERED AND SUPPORT WAS VOICED. DENIES PAIN.
[2024-09-10 11:38] VITALS: BP 101/58; PULSE 76; RESP 18; TEMP 36.8; O2SAT 99
--- NOTE | 2024-09-10 15:13 | P.NPUPN_ITS ---
Subjective NPU 2 Subjective: Patient presented today reporting that he is doing better. He was very optimistic that his lifetime addiction was going to disappear from him just discontinuing his behavior as well. He was aware of his 21-day hold hearing being on Friday. He is currently taking the medication as prescribed and reporting less psychosis and was identifying the role that his addiction played in his psychosis likely. He denied any side effects of the medication. Mental Status Exam 2 MSE Comments: The patient is a casually dressed white male who appeared his stated age. He had a disheveled appearance with improved hygiene noted today. There was no evidence of any abnormal involuntary motor movements, tics, or tremors appreciated. His speech was normal in rate and normal in volume. His thought process was tangential and expansive. His thought content showed no evidence of homicidal or suicidal ideation. There was significant evidence of bizarre delusions, there is also evidence of grandiosity and significant ideas of reference and hyperreligiosity. He did not appear to be responding to internal stimuli. His mood was described as fine. His affect was odd and subdued today. He was alert and oriented to person place and year. His recent and remote memory appeared poor. His insight is impaired. His judgment is poor. His impulse control appeared impaired as well. 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 1.? Continue current medication. 2.??Recommend sober living treatment at the highest level of care to which the patient is willing to commit 3.??Continue Zyprexa 10mg at night. Consider switch to invega due to availability of depot shot. 4. Continue every 15 minute checks for safety. 5.? Will attempt to gather collateral information. 6. 21-day hold paperwork filed in hearing on Friday. Involuntary Hold Information 2 96 Hour Hold: 96 Hour Involuntary Admission: Yes 96 Hour Hold Ending Date: 09/14/24 96 Hour Hold Ending Time: 02:40 Attestations NPU 2 Medical Necessity Statement*: Inpatient hospitalization is medically necessary and?the clinically appropriate intervention at this time.? We will monitor/initiate medications and make changes as indicated. Likely length of stay 3-5 days. Coding Level of Care Code Acute Code for Chg Fwd Diagnoses Unspecified psychosis F29 Drug-induced psychotic disorder F19.959 Alcohol use disorder, moderate, dependence F10.20
[2024-09-10 15:26] VITALS: BP 105/65; PULSE 71; RESP 16; TEMP 36.7; O2SAT 100
[2024-09-10 20:00] VITALS: BP 108/64; PULSE 89; RESP 17; TEMP 36.7; O2SAT 99
[2024-09-10] MEDS: calcium carbonate 500 mg Chew Tablet 1000 MG PO (21:33)
[2024-09-10] MEDS: nicotine 4 mg lozenge MUCOUS MEM (21:33)
[2024-09-10] MEDS: OLANZapine 10 mg ODT PO (21:33)
[2024-09-11] VITALS: BP 100/67; PULSE 69; RESP 16; O2SAT 100
[2024-09-11 04:00] VITALS: BP 105/70; PULSE 70; RESP 16; TEMP 36.4; O2SAT 100
--- NOTE | 2024-09-11 08:09 | P.NPUPN_ITS ---
Subjective NPU 2 Subjective: Patient presented today reporting that he was doing okay. He continued to endorse having an understanding that his methamphetamine use was likely contributing to his psychotic presentation. He continued to express understanding that the 21-day hold hearing would be Friday and that he had the right to attend the hearing at the desired. He denied any side effects to his medication. Mental Status Exam 2 MSE Comments: The patient is a casually dressed white male who appeared his stated age. He had a disheveled appearance with improved hygiene noted today. There was no evidence of any abnormal involuntary motor movements, tics, or tremors appreciated. His speech was normal in rate and normal in volume. His thought process was tangential and expansive. His thought content showed no evidence of homicidal or suicidal ideation. There was significant evidence of bizarre delusions, there is also evidence of grandiosity and significant ideas of reference and hyperreligiosity. He did not appear to be responding to internal stimuli. His mood was described as fine. His affect was odd and subdued today. He was alert and oriented to person place and year. His recent and remote memory appeared poor. His insight is impaired. His judgment is poor. His impulse control appeared impaired as well. 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 1.? Continue current medication. 2.??Recommend sober living treatment at the highest level of care to which the patient is willing to commit 3.??Continue Zyprexa 10mg at night. Consider switch to invega due to availability of depot shot. 4. Continue every 15 minute checks for safety. 5.? Will attempt to gather collateral information. 6. 21-day hold paperwork filed in hearing on Friday. Involuntary Hold Information 2 96 Hour Hold: 96 Hour Involuntary Admission: Yes 96 Hour Hold Ending Date: 09/14/24 96 Hour Hold Ending Time: 02:40 Attestations NPU 2 Medical Necessity Statement*: Inpatient hospitalization is medically necessary and?the clinically appropriate intervention at this time.? We will monitor/initiate medications and make changes as indicated. Likely length of stay 3-5 days. Coding Level of Care Code Acute Code for Chg Fwd Diagnoses Unspecified psychosis F29 Drug-induced psychotic disorder F19.959 Alcohol use disorder, moderate, dependence F10.20
[2024-09-11] MEDS: nicotine 4 mg lozenge MUCOUS MEM ×4 (09:13→22:19)
[2024-09-11] MEDS: folic acid 1 mg Tablet PO (09:13)
[2024-09-11] MEDS: thiamine 100 mg Tablet PO (09:13)
[2024-09-11] MEDS: multivitamin therapeutic Tablet 1 TAB PO (09:13)
[2024-09-11 11:54] VITALS: BP 106/71; PULSE 92; RESP 18; TEMP 36.6; O2SAT 99
[2024-09-11 16:00] VITALS: BP 102/67; PULSE 84; RESP 18; TEMP 36.6; O2SAT 98
[2024-09-11 20:00] VITALS: BP 117/71; PULSE 82; RESP 18; TEMP 36.6; O2SAT 99
[2024-09-11] MEDS: OLANZapine 10 mg ODT PO (22:02)
[2024-09-11] MEDS: calcium carbonate 500 mg Chew Tablet 1000 MG PO (22:02)
[2024-09-12 06:00] VITALS: BP 107/70; PULSE 84; RESP 16; TEMP 36.4; O2SAT 99
[2024-09-12] MEDS: nicotine 4 mg lozenge MUCOUS MEM ×6 (06:28→20:43)
[2024-09-12 08:19] VITALS: BP 100/62; PULSE 81; RESP 18; TEMP 36.6; O2SAT 99
[2024-09-12] MEDS: folic acid 1 mg Tablet PO (08:27)
[2024-09-12] MEDS: multivitamin therapeutic Tablet 1 TAB PO (08:27)
[2024-09-12] MEDS: thiamine 100 mg Tablet PO (08:27)
[2024-09-12] MEDS: calcium carbonate 500 mg Chew Tablet 1000 MG PO (08:27)
--- NOTE | 2024-09-12 08:28 | PC.NURSE ---
PRN TUMS 1,000 MG GIVEN (2 CHEWABLE TABLETS) PER PT C/O INDIGESTION
--- NOTE | 2024-09-12 08:38 | PC.NURSE ---
Morning assessment Patient denies anxiety, depression, SI, HI, and AVH. Patient states that he is just waiting to find out if he will be put on a 21-day hold. Patient said that he is okay with staying longer if that is what the doctor thinks is best. Patient denies pain, questions. Calm during assessment.
[2024-09-12 11:07] VITALS: BP 118/77; PULSE 80; RESP 16; TEMP 36.7; O2SAT 98
--- NOTE | 2024-09-12 15:09 | P.NPUPN_ITS ---
Subjective NPU 2 Subjective: Patient presented today reporting that he is starting to feel better. He reports that he does understand that he has a hearing for 21-day hold on Friday. We discussed continuing to evaluate him for safety for discharge. He continues to have no clarity about where he will go after leaving or how he would avoid worsening drug use in the future. He denied any side effects of medication. Mental Status Exam 2 MSE Comments: The patient is a casually dressed white male who appeared his stated age. He had a disheveled appearance with improved hygiene noted today. There was no evidence of any abnormal involuntary motor movements, tics, or tremors appreciated. His speech was normal in rate and normal in volume. His thought process was tangential and expansive. His thought content showed no evidence of homicidal or suicidal ideation. There was significant evidence of bizarre delusions, there is also evidence of grandiosity and significant ideas of reference and hyperreligiosity. He did not appear to be responding to internal stimuli. His mood was described as fine. His affect was odd and subdued today. He was alert and oriented to person place and year. His recent and remote memory appeared poor. His insight is impaired. His judgment is poor. His impulse control appeared impaired as well. 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 1.? Continue current medication. 2.??Recommend sober living treatment at the highest level of care to which the patient is willing to commit 3.??Continue Zyprexa 10mg at night. Consider switch to invega due to availability of depot shot. 4. Continue every 15 minute checks for safety. 5.? Will attempt to gather collateral information. 6. 21-day hold paperwork filed in hearing on Friday. Involuntary Hold Information 2 96 Hour Hold: 96 Hour Involuntary Admission: Yes 96 Hour Hold Ending Date: 09/14/24 96 Hour Hold Ending Time: 02:40 Attestations NPU 2 Medical Necessity Statement*: Inpatient hospitalization is medically necessary and?the clinically appropriate intervention at this time.? We will monitor/initiate medications and make changes as indicated. Likely length of stay 2-4 days. Coding Level of Care Code Acute Code for Chg Fwd Diagnoses Unspecified psychosis F29 Drug-induced psychotic disorder F19.959 Alcohol use disorder, moderate, dependence F10.20
[2024-09-12 20:10] VITALS: BP 115/79; PULSE 78; RESP 18; TEMP 36.5; O2SAT 99
[2024-09-12] MEDS: trazodone 50 mg Tablet PO ×2 (20:41→20:45)
[2024-09-12] MEDS: OLANZapine 10 mg ODT PO (20:41)
[2024-09-12] MEDS: OLANZapine 5 mg ODT PO (20:45)
[2024-09-13 06:00] VITALS: BP 103/71; PULSE 77; RESP 17; TEMP 36.7; O2SAT 98
[2024-09-13] MEDS: folic acid 1 mg Tablet PO (09:10)
[2024-09-13] MEDS: multivitamin therapeutic Tablet 1 TAB PO (09:10)
[2024-09-13] MEDS: thiamine 100 mg Tablet PO (09:10)
[2024-09-13] MEDS: nicotine 4 mg lozenge MUCOUS MEM ×6 (09:11→20:42)
[2024-09-13 13:49] VITALS: BP 110/76; PULSE 92; RESP 16; TEMP 36.8; O2SAT 99
--- NOTE | 2024-09-13 14:47 | P.NPUPN_ITS ---
Subjective NPU 2 Subjective: Patient presented today reporting that things are going okay. He is aware that hearing is later today and he did not plan on going to the hearing but excepted that he needed to still be here. We discussed whether or not a change of medication was indicated. He denied any side effects to his medications. Mental Status Exam 2 MSE Comments: This is a diminutive but well-nourished white male in hospital scrubs with adequate grooming and eye contact. There was no evidence of any abnormal involuntary motor movements, tics, or tremors appreciated. Cooperative with exam in mild distress. His speech was normal in rate and normal in volume. Mood described as better, affect less odd. Thought process was linear. His thought content showed no evidence of homicidal or suicidal ideation. There were no delusions reported or noted, he denied auditory or visual hallucinations. He did not appear to be responding to internal stimuli. Attention and concentration are improving and memory appeared mostly reliable but none were formally tested. His insight and judgment are improving. His impulse control appeared limited.. 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 1.? Continue current medication. 2.??Recommend sober living treatment at the highest level of care to which the patient is willing to commit 3.??Continue Zyprexa 10mg at night. Consider switch to invega due to availability of depot shot. 4. Continue every 15 minute checks for safety. 5.? Will attempt to gather collateral information. 6. 21-day hold paperwork filed in hearing on today at 330. Involuntary Hold Information 2 96 Hour Hold: 96 Hour Involuntary Admission: Yes 96 Hour Hold Ending Date: 09/14/24 96 Hour Hold Ending Time: 02:40 Attestations NPU 2 Medical Necessity Statement*: Inpatient hospitalization is medically necessary and?the clinically appropriate intervention at this time.? We will monitor/initiate medications and make changes as indicated. Likely length of stay 2-4 days. Coding Level of Care Code Acute Code for Chg Fwd Diagnoses Unspecified psychosis F29 Drug-induced psychotic disorder F19.959 Alcohol use disorder, moderate, dependence F10.20
[2024-09-13 19:13] VITALS: BP 115/80; PULSE 80; RESP 18; TEMP 36.8; O2SAT 100
[2024-09-13] MEDS: OLANZapine 10 mg ODT PO (20:20)
[2024-09-13] MEDS: trazodone 50 mg Tablet PO (20:20)
[2024-09-14 06:00] VITALS: BP 107/74; PULSE 78; RESP 18; TEMP 36.6; O2SAT 98
[2024-09-14] MEDS: nicotine 4 mg lozenge MUCOUS MEM ×6 (06:11→20:42)
[2024-09-14] MEDS: thiamine 100 mg Tablet PO (09:04)
[2024-09-14] MEDS: folic acid 1 mg Tablet PO (09:04)
[2024-09-14] MEDS: multivitamin therapeutic Tablet 1 TAB PO (09:04)
[2024-09-14 13:33] VITALS: BP 112/73; PULSE 88; RESP 16; TEMP 36.6; O2SAT 97
--- NOTE | 2024-09-14 16:59 | P.NPUPN_ITS ---
Subjective NPU 2 Subjective: Patient presented today reporting that things are going okay. He reported that he was advised he was excepted at [facility] and he wondered if we felt he was ready. We discussed feeling like he is improved significantly during the stay we discussed the risks, benefits and alternatives of discharge tomorrow to [facility] and he understood and agreed to proceed as is documented in this note. He denied any side effects of the medication. Mental Status Exam 2 MSE Comments: This is a diminutive but well-nourished white male in hospital scrubs with adequate grooming and eye contact. There was no evidence of any abnormal involuntary motor movements, tics, or tremors appreciated. Cooperative with exam in no acute distress. His speech was normal in rate and normal in volume. Mood described as better, affect less odd. Thought process was linear. His thought content showed no evidence of homicidal or suicidal ideation. There were no delusions reported or noted, he denied auditory or visual hallucinations. He did not appear to be responding to internal stimuli. Attention and concentration are improving and memory appeared mostly reliable but none were formally tested. His insight and judgment are improving. His impulse control appeared limited.. 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 1.? Continue current medication. 2.??Recommend sober living treatment at the highest level of care to which the patient is willing to commit 3.??Continue Zyprexa 10mg at night. Consider switch to invega due to availability of depot shot. 4. Continue every 15 minute checks for safety. 5.? Will attempt to gather collateral information. 6. 21-day hold initiated yesterday. 7. Patient accepted at [facility] with plan to discharge tomorrow. Involuntary Hold Information 2 96 Hour Hold: 96 Hour Involuntary Admission: Yes 96 Hour Hold Ending Date: 09/14/24 96 Hour Hold Ending Time: 02:40 Attestations NPU 2 Medical Necessity Statement*: Inpatient hospitalization is medically necessary and?the clinically appropriate intervention at this time.? We will monitor/initiate medications and make changes as indicated. Likely length of stay 1-3 days. Coding Level of Care Code Acute Code for Chg Fwd Diagnoses Unspecified psychosis F29 Drug-induced psychotic disorder F19.959 Alcohol use disorder, moderate, dependence F10.20
[2024-09-14 19:56] VITALS: BP 133/92; PULSE 100; RESP 18; TEMP 36.7; O2SAT 98
[2024-09-14] MEDS: OLANZapine 10 mg ODT PO (20:41)
[2024-09-14] MEDS: trazodone 50 mg Tablet PO (20:41)
[2024-09-15 06:00] VITALS: BP 111/75; PULSE 72; RESP 16; O2SAT 98
[2024-09-15] MEDS: nicotine 4 mg lozenge MUCOUS MEM ×3 (06:09→12:34)
[2024-09-15] MEDS: multivitamin therapeutic Tablet 1 TAB PO (08:58)
[2024-09-15] MEDS: thiamine 100 mg Tablet PO (08:58)
[2024-09-15] MEDS: folic acid 1 mg Tablet PO (08:58)
--- NOTE | 2024-09-15 11:38 | W.PM.NPUDCS ---
Diagnoses at Discharge Discharge Diagnosis (1) Unspecified psychosis: Status: Acute (2) Drug-induced psychotic disorder: Status: Acute (3) Alcohol use disorder, moderate, dependence: Status: Chronic Reason for Visit Reason for Visit: hearing and seeing things Brief History: History of Present Illness Gaurang Fan is a 39 year old male who was brought to the emergency room accompanied by police after he had admitted to having used illicit drugs and appearing significantly confused. The patient was admitted involuntarily to the neuropsychiatric unit for further evaluation and treatment. The patient had stated that he was picked up by the police because he had made a complaint that the neighbors were involved in evil actions. The patient had reported that he is [employer] God and has control of . He reports that he has angels working for him and asked the service writer advisor of this note if he was not Pro. The patient reports that his aunt Kaylin Zurita has a jellyfish on her head that allows her to read and control the thoughts of others. He stated that everyone on the news or trying to poison him and stated that they were also trying to extract his blood. The patient is also stated that he was the lost son of Lindsay as he alluded to specific markings on his thumb that indicated a commonality of origin. The patient's urine drug screen had not been drawn at this time. He reports currently not being on medications. Inpatient psychiatric history: There appears to be a past history of inpatient psychiatric hospitalization here 3 years ago. Outpatient psychiatric history: None reported Medical history: None reported Surgical history: vasectomy. Current medications: None Substance abuse history: Previous history of noted alcohol abuse along with methamphetamine abuse. There have been reported history of alcohol dependence with withdrawal symptoms. Family psychiatric history: Reported history of bipolar disorder in biological father per previous records also history of polysubstance abuse and 2 of his siblings. Legal history: Unknown Social history: Previous records indicate the patient was born in [place] and had completed up to 11th grade here. He had reported having previously been but is currently . He has children allegedly that live in [place] with their mother. He is currently unemployed. NPU Discharge summary from 09/08/21 SI Brief History: Gaurang Fan is a 36 year old male history of trauma and social anxiety along with moderate alcohol use and marijuana disorders and psychiatric medication noncompliance, who was admitted on a 96-hour hold last night because he was brought in by law enforcement intoxicated, belligerent, and making suicidal threats. The note from the ED states: 36-year-old male presents to the emergency room brought in by [facility]. They are 96-hour hold from the local [place] [address]. Patient is acutely intoxicated he continues to make suicidal threats while here. Before a physician could go to the room and evaluate him security was monitoring him and he became very aggressive. Code 10 was called when I arrived in the room patient was making threats to others as well as to himself including threatening to kill himself. Explained to him that we wanted to try to help him. Ultimately we did give him Geodon and Ativan and he was placed in the restraint bed see the appropriate documentation in this chart as well as in the nursing chart. We were able to verbally de-escalate with him to some extent after he was placed in the restraint bed. He is still not safe to be removed at this time. Third 96-hour hold reviewed. According to the affidavits he has threatened to shoot himself in the past his family has had his firearms. The patient does not remember the events of last night. He does not remember saying he was going to kill himself. He says that he does not want to kill himself today. He is still quite shaky coming down on alcohol. He says he drank 1 pint of whiskey yesterday, but that is not likely given that his BAL was 405 when he arrived in the emergency room. I told him that level could be lethal to some people. He says he has been feeling quite depressed since his mother suddenly of a pulmonary embolism on 08/03/2021. He says he could look at pictures of her. He had poor sleep and weight loss. He said that his energy and motivation were okay and he denied feelings of helplessness, hopelessness or worthlessness. He also denied feeling suicidal over the past several weeks. The patient says that his gave him some of her Lexapro over the past 2+ weeks. He says initially it caused his head to swim, caused nausea, and he felt that people were talking about him. After a few days those side effects went away. He said that his grief about his mother's began to improve too. For instance, he was able to start looking at pictures of his mom. He denies any history of auditory or visual hallucinations. The patient denies any previous psychiatric treatment, however records indicate that he has seen Dr. Jorge Serrano at the [facility] [place], with the last visit on 04/02/2021. Dr. Serrano had prescribed acamprosate but the patient had stopped taking it. He was drinking 1/2 pint or less of alcohol. He started using marijuana medical marijuana 2 or [address] Serrano discussed the problems with marijuana use and encouraged him to reconsider taking acamprosate. The patient indicated that he did not want to continue any treatment at that point. The patient denies any previous rehabilitation treatment for alcohol problems and says he has no history of DUI. He does say he has been drinking a pint of whiskey a day and gets shaky and sweaty if he stops drinking for a day. He denies any history of seizures or hallucinations. He says he also smokes marijuana daily. He denies methamphetamines and other drugs. He says he smokes 1 pack of cigarettes per day. This is a televisit for safety precautions related to coronavirus recommendations, I spent a total 15 minutes on his case today. He tells me that he has not been compliant with medications and he has not taken it in a couple months now. His sleep is 6 to 7 hours a night, he says he does drink alcohol once or twice a week and usually drinks 1/2 pint or less. He tells me that the taste of alcohol was not seem anymore, and I told him that that may be due to the acamprosate. He denies any suicidal or homicidal thoughts, he did acknowledge that he has been getting medical marijuana and uses it 2-3 times a week. We did discuss the problems with marijuana use and the tolerance and dependence risk associated with it along with cognitive decline. I encouraged him to reconsider the acamprosate if his alcohol use escalates, otherwise he is not interested in scheduling or medications at this time Psychiatric history: As above. He denies any past psychiatric hospitalizations. Substance use history: As above. Family history: The patient says that his biological father reportedly had a history of bipolar disorder and dementia, but he did not know him. He said both of his brothers have been addicted to meth. 1 from suicide 3 or 4 years ago. The other is in senior care, but he does not know the reasons why. Psychosocial history: The patient says he was born in [place] and attended high school through the 11th grade here. He has dated his for 20 years and they have been for the past 4. They have children ages 16, 12, and 9 years old. 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 He likes that work because it is different every day. Legal history: He denies legal difficulties. Medical history: He says he takes lisinopril 20 mg daily for hypertension. He says he has had a vasectomy. Involuntary Hold Information 96 Hour Hold: 96 Hour Involuntary Admission: Yes 96 Hour Hold Ending Date: 09/14/24 96 Hour Hold Ending Time: 02:40 Other Hold: Hold End Date: 10/04/24 Mental Status Exam MSE Comments: This is a diminutive but well-nourished white male in hospital scrubs with adequate grooming and eye contact. There was no evidence of any abnormal involuntary motor movements, tics, or tremors appreciated. Cooperative with exam in no acute distress. His speech was normal in rate and normal in volume. Mood described as better, affect less odd. Thought process was linear. His thought content showed no evidence of homicidal or suicidal ideation. There were no delusions reported or noted, he denied auditory or visual hallucinations. He did not appear to be responding to internal stimuli. Attention and concentration are improving and memory appeared mostly reliable but none were formally tested. His insight and judgment are improving. His impulse control appeared limited.. Discharge Data Studies Completed and Pending: Laboratory Results WBC 11.32 10^3/uL (3. 29-11.43) 09/08/24 02:46 RBC 4.96 10^6/uL (3.8 5-5.65) 09/08/24 02:46 Hgb 15.50 g/dL (11.27 -16.99) 09/08/24 02:46 Hct 44.2 % (37-53) 09/08/24 02:46 MCV 89.1 fl (82-101) 09/08/24 02:46 MCH 31.3 pg (27-33) 09/08/24 02:46 MCHC 35.1 g/dL (30-55) 09/08/24 02:46 RDW 12.9 % (12.1-15.1 ) 09/08/24 02:46 Plt Count 344 10^3/cmm (157 -399) 09/08/24 02:46 MPV 9.6 fL (7.4-10.4) 09/08/24 02:46 Neut % (Auto) 77.9 % 09/08/24 02:46 Lymph % (Auto) 13.1 % 09/08/24 02:46 [place] % (Auto) 7.6 % 09/08/24 02:46 Eos % (Auto) 0.2 % 09/08/24 02:46 Baso % (Auto) 0.8 % 09/08/24 02:46 Neut # (Auto) 8.83 10^3/uL (1.8 -7.7) H 09/08/24 02:46 Lymph # (Auto) 1.5 10^3/uL (0.8- 4.8) 09/08/24 02:46 [place] # (Auto) 0.9 10^3/uL (0.2- 0.9) 09/08/24 02:46 Eos # (Auto) 0.0 10^3/uL (0.0- 0.8) 09/08/24 02:46 Baso # (Auto) 0.1 10^3/uL (0.0- 0.1) 09/08/24 02:46 Nucleated RBC % (a uto) 0 % 09/08/24 02:46 Nucleated RBCs # 0.0 /100WBC 09/08/24 02:46 Sodium 136 mmol/L (136-1 45) 09/08/24 02:46 Potassium 3.3 mmol/L (3.5-5 .1) L 09/08/24 02:46 Chloride 93 mmol/L (98-107 ) L 09/08/24 02:46 Carbon Dioxide 22 mmol/L (22-29) 09/08/24 02:46 Anion Gap 24.3 (5-19) H 09/08/24 02:46 BUN 32 mg/dL (6-20) H 09/08/24 02:46 Creatinine 1.0 mg/dL (0.7-1. 2) 09/08/24 02:46 GFR Calculation 83.6 mL/min (90-1 30) L 09/08/24 02:46 Glucose 80 mg/dL (65-115) 09/08/24 02:46 POC Glucose 95 mg/dL (70-110) 09/08/24 17:28 Calculated Osmolal ity 288 mOsm/kg (285- 295) 09/08/24 02:46 Calcium 9.6 mg/dL (8.5-10 .5) 09/08/24 02:46 Total Bilirubin 2.1 mg/dL (0.15-1 .2) H 09/08/24 02:46 AST 48 U/L (0-40) H 09/08/24 02:46 ALT 22 U/L (0-41) 09/08/24 02:46 Alkaline Phosphata se 91 U/L (40-130) 09/08/24 02:46 Total Protein 8.3 g/dL (6.6-8.7 ) 09/08/24 02:46 Albumin 5.2 g/dL (3.5-5.2 ) 09/08/24 02:46 Globulin 3.1 g/dL (1.3-4.6 ) 09/08/24 02:46 TSH 2.23 uIU/mL (0.27 -4.20) 09/08/24 02:46 Urine Color Yellow (Yellow) 09/09/24 17:00 Urine Appearance Clear (CLEAR) 09/09/24 17:00 Urine pH 5.5 (5-7) 09/09/24 17:00 Ur Specific Gravit y 1.023 (1.005-1.0 30) 09/09/24 17:00 Urine Protein Negative (Negati ve) 09/09/24 17:00 Urine Glucose (UA) Negative (Normal ) 09/09/24 17:00 Urine Ketones Negative (Negati ve) 09/09/24 17:00 Urine Blood Negative (Negati ve) 09/09/24 17:00 Urine Nitrate Negative (Negati ve) 09/09/24 17:00 Urine Bilirubin Negative (Negati ve) 09/09/24 17:00 Urine Urobilinogen 1.0 mg/dL (Negati ve) 09/09/24 17:00 Ur Leukocyte Celena ase Negative (Negati ve) 09/09/24 17:00 Urine RBC 0-2 /hpf (0-2) 09/09/24 17:00 Urine WBC 0-5 /hpf (0-5) 09/09/24 17:00 Ur Squamous Epith Cells 0-5 /hpf (0-5) 09/09/24 17:00 Amorphous Sediment Not Reportable 09/08/24 17:00 Urine Bacteria None seen /hpf (N ONE) 09/09/24 17:00 Hyaline Casts 0.81 /lpf 09/09/24 17:00 Salicylates < 0.3 mg/dL (3-10 ) L 09/08/24 02:46 Urine Opiates Scre en Negative ng/mL (N egative) 09/08/24 17:00 Acetaminophen < 5.0 ug/mL (10-3 0) L 09/08/24 02:46 Ur Barbiturates Sc reen Negative ng/mL (N egative) 09/08/24 17:00 Ur Phencyclidine S crn Negative ng/mL (N egative) 09/08/24 17:00 Ur Amphetamines Sc reen Positive ng/mL (N egative) H 09/08/24 17:00 U Benzodiazepines Scrn Positive ng/mL (N egative) H 09/08/24 17:00 Urine Cocaine Scre en Negative ng/mL (N egative) 09/08/24 17:00 U Marijuana (THC) Screen Positive ng/mL (N egative) H 09/08/24 17:00 Ethyl Alcohol < 10 mg/dL (0-10) 09/08/24 02:46 Vitals: Last Vital Signs Temp 98.1 F 09/14/24 19:56 Pulse 72 09/15/24 06:00 Resp 16 09/15/24 06:00 BP 111/75 09/15/24 06:00 Pulse Ox 98 09/15/24 06:00 O2 Del Method Room Air 09/14/24 13:33 Discharge Plan Discharge Patient Disposition: Home Condition: Stable Prescriptions: New olanzapine 10 mg Tablet,Disintegrating 10 mg PO BEDTIME 30 Days Qty: 30 1RF thiamine mononitrate (vit B1) [Vitamin B-1 (mononitrate)] 100 mg Tablet 100 mg PO DAILY 30 Days Qty: 30 1RF trazodone 50 mg Tablet 50 mg PO BEDTIME PRN (Reason: Sleep) 30 Days Qty: 30 1RF Discharge Orders: Discharge Order (Routine); Ordered 09/15/24 Ordered By: Pedro Hendrix Referrals: [facility] [Other] - 09/15/24 (Admission day) [facility] [Outside] - 09/17/24 12:30 pm (Telehealth initial assesment in office with Jayne Colby. ) Discharge Diet: Regular Discharge Activity: Resume usual activity Patient Instructions: Opioid Safety Discharge Attestations NPU Time Spent in Discharge Care*: less than 30 min Specific Discharge Activities: Specific discharge activities: educating patient, discussing with correctional casework specialist/social workers/dc planners, documenting/other paperwork and evaluating patient/reviewing data Status at Discharge: Cognitive status at discharge: cognitively intact, Behavioral status at discharge: cooperative, Coding Level of Care Code Acute Code for Chg Fwd Diagnoses Unspecified psychosis F29 Drug-induced psychotic disorder F19.959 Alcohol use disorder, moderate, dependence F10.20
[2024-09-15 12:03] VITALS: BP 114/71; PULSE 82; RESP 16; TEMP 36.5; O2SAT 99
[2024-09-15 12:32] VITALS: BP 114/71; PULSE 82; RESP 16; TEMP 36.5; O2SAT 99
== END 2024-09-15 14:03 | disposition home or self-care (01) | DRG 897 ==
LOC: ER 02:49 → NP 03:45
PROVIDERS: Admitting Provider Psychiatry & Neurology Psychiatry; Emergency Provider Emergency Medicine; Visit Provider Psychiatry & Neurology Psychiatry
DX: F15.959 Other stimulant use, unspecified with stimulant-induced psychotic disorder, unspecified (principal); F10.20 Alcohol dependence, uncomplicated; F17.210 Nicotine dependence, cigarettes, uncomplicated; Z81.8 Family history of other mental and behavioral disorders
CPT/HCPCS: 36415; 36416; 80053; 80306; 80307; 81001; 82962; 84443; 85025; 93005; 96372; 97150; 97165; 99285; J2060; J3486

== ENCOUNTER 2025-06-06 14:22 | Inpatient (IN) | payer MEDICAID, SELFPAY ==
--- NOTE | 2025-06-06 14:26 | ED.C_ITS ---
HPI - Psych 2 General: Chief Complaint: Psychiatric Symptoms Stated Complaint: 96 hour hold Time Seen by Provider: 06/06/25 14:23 Source: patient and police Mode of arrival: ambulatory Limitations: no limitations History of Present Illness: 39-year-old male is brought in by police on a 96-hour hold. Patient states that he has had subpar living conditions and they are worried about his mental health and taking care of himself. He is also had some hallucinations per police patient denies SI or HI denies any worse improving factors. Associated symptoms: Reports auditory hallucinations Related Data Previous Rx's ?Medication ?Instructions ?Recorded olanzapine 10 mg disintegrating 10 mg PO BEDTIME 30 da ys #30 tabs 09/15/24 tablet thiamine mononitrate (vit B1) 100 100 mg PO DAILY 30 d ays #30 tabs 09/15/24 mg tablet (Vitamin B-1 (mononitrate)) trazodone 50 mg tablet 50 mg PO BEDTIME PRN Sleep 3 0 days 09/15/24 #30 tabs Allergies Allergy/AdvReac Type Severity Reaction Status Date / Time No Known Allergies Allergy Verified 09/08/24 02:24 Review of Systems 2 Const: Denies: fever(s), chills, body aches or change in appetite ENMT: Denies: throat pain or dental pain Card: Denies: chest pain Resp: Denies: dyspnea GI: Denies: abdominal pain, nausea, vomiting or diarrhea Musc: Denies: neck pain or back pain Skin/Breast: Denies: rash Neuro: Denies: headache(s) Psych: Reports: auditory hallucinations PFS ED 2 PFSH: Medical History No pertinent family history Surgical History No pertinent past surgical history Social History Smoking and tobacco/nicotine status: current every day tobacco/nicotine user cigarettes Packs smoked per day: 1 Years cigarettes smoked: 20 Quit status (tobacco/nicotine): not considering quitting Second hand smoke exposure: No Current gender identity: Male Physical Exam 2 Const: COMMON NORMALS: no acute distress, patient oriented x3 and healthy appearing HENMT: COMMON NORMALS: normocephalic and atraumatic HEAD & SCALP: n ormocephalic and atraumatic Eye: COMMON NORMALS: conjunctivae normal CONJUNCTIVA: Yes conjunctivae normal Neck/C-Spine: COMMON NORMALS: full ROM and supple Chest: COMMONS NORMALS: normal inspection of the chest Resp: COMMON NORMALS: normal respiratory effort, No retractions, No use of accessory muscles and clear to auscultation bilaterally AUSCULTATION: clear to auscultation bilaterally Cardio: COMMON NORMALS: regular rate, regular rhythm and No murmurs present (Cardio) RATE: regular rate RHYTHM: regular rhythm GI: COMMON NORMALS: Normal to inspection, nondistended, normoactive bowel sounds present, Soft to palpation, non-tender and no masses PALPATION: Yes Soft to palpation Extremity: COMMON NORMALS: normal to inspection and full ROM Neuro: COMMON NORMALS: patient oriented x3, moves all extremities and no focal motor deficits Psych: COMMON NORMALS: mental status grossly normal, Normal thought process present and cooperative THOUGHT PROCESS: Normal thought process present Skin: COMMON NORMALS: no rashes or lesions noted and no wounds GENERAL SKIN EXAM: no rashes or lesions noted Course 2 Vital Signs: Vital signs: Vital Signs Temperature 98.0 F 06/06/25 14:28 Pulse Rate 123 H 06/06/25 14:28 Respiratory Rate 18 06/06/25 14:28 Blood Pressure 139/101 06/06/25 14:28 Pulse Oximetry 93 06/06/25 14:28 Oxygen Delivery Me thod Room Air 06/06/25 14:28 [facility] - Psych Medical Decision Making Patient presents here with 96-hour hold has had some depression and hallucinations he is medically cleared spoke to psychiatrist will admit to the psych [place] this time Medical Records I reviewed the patient's medical records. Lab Data I reviewed the patient's lab results. 06/06/25 14:38 06/06/25 14:38 Laboratory Results WBC 8.51 10^3/uL (3.29-11.43) 06/06/25 14:38 RBC 5.39 10^6/uL (3.85-5.65) 06/06/25 14:38 Hgb 16.70 g/dL (11.27-16.99) 06/06/25 14:38 Hct 47.5 % (37-53) 06/06/25 14:38 MCV 88.1 fl (82-101) 06/06/25 14:38 MCH 31.0 pg (27-33) 06/06/25 14:38 MCHC 35.2 g/dL (30-55) 06/06/25 14:38 RDW 12.9 % (12.1-15.1) 06/06/25 14:38 Plt Count 355 10^3/cmm (157-399) 06/06/25 14:38 MPV 10.5 fL (7.4-10.4) H 06/06/25 14:38 Neut % (Auto) 52.9 % 06/06/25 14:38 Lymph % (Auto) 35.4 % 06/06/25 14:38 [place] % (Auto) 8.3 % 06/06/25 14:38 Eos % (Auto) 1.9 % 06/06/25 14:38 Baso % (Auto) 1.3 % 06/06/25 14:38 Neut # (Auto) 4.50 10^3/uL (1.8-7.7) 06/06/25 14:38 Lymph # (Auto) 3.0 10^3/uL (0.8-4.8) 06/06/25 14:38 [place] # (Auto) 0.7 10^3/uL (0.2-0.9) 06/06/25 14:38 Eos # (Auto) 0.2 10^3/uL (0.0-0.8) 06/06/25 14:38 Baso # (Auto) 0.1 10^3/uL (0.0-0.1) 06/06/25 14:38 Nucleated RBC % (auto) 0 % 06/06/25 14:38 Nucleated RBCs # 0.0 /100WBC 06/06/25 14:38 Sodium 143 mmol/L (136-145) 06/06/25 14:38 Potassium 3.5 mmol/L (3.5-5.1) 06/06/25 14:38 Chloride 104 mmol/L (98-107) 06/06/25 14:38 Carbon Dioxide 24 mmol/L (22-29) 06/06/25 14:38 Anion Gap 18.5 (5-19) 06/06/25 14:38 BUN 14 mg/dL (6-20) 06/06/25 14:38 Creatinine 0.8 mg/dL (0.7-1.2) 06/06/25 14:38 GFR Calculation 108.2 mL/min (90-130) 06/06/25 14:38 Glucose 111 mg/dL (65-115) 06/06/25 14:38 Calculated Osmolality 297 mOsm/kg (285-295) H 06/06/25 14:38 Calcium 10.0 mg/dL (8.5-10.5) 06/06/25 14:38 Total Bilirubin 0.2 mg/dL (0.15-1.2) 06/06/25 14:38 AST 13 U/L (0-40) 06/06/25 14:38 ALT 14 U/L (0-41) 06/06/25 14:38 Alkaline Phosphatase 90 U/L (40-130) 06/06/25 14:38 Total Protein 7.7 g/dL (6.6-8.7) 06/06/25 14:38 Albumin 4.6 g/dL (3.5-5.2) 06/06/25 14:38 Globulin 3.1 g/dL (1.3-4.6) 06/06/25 14:38 Salicylates < 0.3 mg/dL (3-10) L 06/06/25 14:38 Acetaminophen < 5.0 ug/mL (10-30) L 06/06/25 14:38 Ethyl Alcohol < 10 mg/dL (0-10) 06/06/25 14:38 All radiology interpretation(s) finalized by discharge Discharge Plan Discharge Condition: Stable Prescriptions: No Action olanzapine 10 mg Tablet,Disintegrating 10 mg PO BEDTIME 30 Days Qty: 30 1RF thiamine mononitrate (vit B1) [Vitamin B-1 (mononitrate)] 100 mg Tablet 100 mg PO DAILY 30 Days Qty: 30 1RF trazodone 50 mg Tablet 50 mg PO BEDTIME PRN (Reason: Sleep) 30 Days Qty: 30 1RF Print Language: B[place] Coding Level of Care Code ED Local Announcer for Therese Maier
[2025-06-06 14:28] VITALS: BP 139/101; PULSE 123; RESP 18; TEMP 36.7; O2SAT 93; BMI 23.9
[2025-06-06 14:44] LABS: Hematocrit 47.5 % (37-53); Hemoglobin 16.70 g/dL (11.27-16.99); Mean Corpuscular HGB Conc 35.2 g/dL (30-55); Mean Corpuscular Hemoglobin 31.0 pg (27-33); Mean Corpuscular Volume 88.1 fl (82-101); Nucleated Red Blood Cells % 0 %; Platelet Count 355 10^3/cmm (157-399); Red Blood Count 5.39 10^6/uL (3.85-5.65); White Blood Count 8.51 10^3/uL (3.29-11.43)
[2025-06-06 15:01] LABS: Alanine Aminotransferase 14 U/L (0-41); Albumin Level 4.6 g/dL (3.5-5.2); Alkaline Phosphatase 90 U/L (40-130); Anion Gap 18.5 (5-19); Aspartate Amino Transferase 13 U/L (0-40); Blood Urea Nitrogen 14 mg/dL (6-20); Calcium 10.0 mg/dL (8.5-10.5); Carbon Dioxide 24 mmol/L (22-29); Chloride 104 mmol/L (98-107); Creatinine Clr Calc Pharmacy 103.8310; Globulin 3.1 g/dL (1.3-4.6); Glucose 111 mg/dL (65-115); Osmolality Calculated 297 mOsm/kg (285-295); Potassium 3.5 mmol/L (3.5-5.1); Sodium 143 mmol/L (136-145); Total Protein 7.7 g/dL (6.6-8.7)
[2025-06-06 15:03] LABS: Acetaminophen < 5.0 ug/mL (10-30); Alcohol Level < 10 mg/dL (0-10); Salicylate < 0.3 mg/dL (3-10)
[2025-06-06 15:36] LABS: PCP Screen Urine Negative (Negative)
--- NOTE | 2025-06-06 15:59 | PC.NURSE ---
96 hr rights reviewed with pt @[id number] with assistance of [facility] chief supply chain officer Leander Oconnor. All education reviewed at this time. Pt verbalized understanding to the hold parameters, and had no questions for HS. Pt copy was left @bedside with pt. Pt declined wanting a snack or drink when asked. No further needs.
[2025-06-06 16:05] VITALS: BP 145/101; PULSE 84; RESP 18; TEMP 36.8; O2SAT 98
[2025-06-06 19:17] VITALS: BP 122/87; PULSE 77; RESP 16; TEMP 36.6; O2SAT 98
[2025-06-07 06:00] VITALS: BP 113/80; PULSE 68; RESP 16; O2SAT 94
[2025-06-07 14:00] VITALS: BP 111/78; PULSE 61; RESP 18; TEMP 36.7; O2SAT 98
--- NOTE | 2025-06-07 14:01 | P.NPUHP_ITS ---
Providers/Chief Complaint 2 Admitting Physician: Aydin Alvarez MD Chief Complaint: 96 hour hold [facility] NPU History of Present Illness Gaurang Fan is a 39 year old male with a past history of 2 previous hospitalizations through the neuropsychiatric unit most recently in September 2020 for who presented to the emergency department on a 96-hour hold after an affidavit had been filled by a member of the patient's christian. The patient had stated that he was at home when he was picked up by the police and was brought to the emergency department where he was evaluated and placed in the neuropsychiatric unit for further evaluation and treatment. According to the affidavit the patient has been residing in the home with substandard living conditions that appeared to be infested with bugs and flies. He has been living in a camper that has no electricity or heat. The mortgage underwriter of the affidavit had suggested that the patient had been refusing food or water without the help of others and had been endorsing that he was Tyson Wild to others around him. The patient on interview had stated that he was simply minding his own business. He reports occasional alcohol use and reports that he has at times used methamphetamine. His urine drug screen was negative for alcohol or any illicit drugs. He does acknowledge that he has homeless. He denies any diana. He did endorse that he had felt like jellyfish allowed humans to communicate with God in a more direct form. The patient states that he has not been taking any medications. The patient had minimized having any thoughts of hurting himself or others. He does report that he isolates himself from others. He reports having very little support from any family members. The patient had acknowledged a past history of depression and there was suggestion that the patient's behavior and ability to care for himself had declined after COVID. He reports that he is currently not working. He reports no substantiative changes since his last hospitalization 8 months ago. Current medications: None Excerpt from NPU Discharge summary from 09/15/2024. Discharge Diagnosis (1) Unspecified psychosis: Status: Acute (2) Drug-induced psychotic disorder: Status: Acute (3) Alcohol use disorder, moderate, dependence: Status: Chronic Reason for Visit hearing and seeing things Brief History: History of Present Illness Gaurang Fan is a 39 year old male who was brought to the emergency room accompanied by police after he had admitted to having used illicit drugs and appearing significantly confused. The patient was admitted involuntarily to the neuropsychiatric unit for further evaluation and treatment. The patient had stated that he was picked up by the police because he had made a complaint that the neighbors were involved in evil actions. The patient had reported that he is Tyson God and has control of . He reports that he has angels working for him and asked the mortgage underwriter of this note if he was not Pro. The patient reports that his aunt Kaylin Zurita has a jellyfish on her head that allows her to read and control the thoughts of others. He stated that everyone on the news or trying to poison him and stated that they were also trying to extract his blood. The patient is also stated that he was the lost son of Lindsay as he alluded to specific markings on his thumb that indicated a commonality of origin. The patient's urine drug screen had not been drawn at this time. He reports currently not being on medications. Inpatient psychiatric history: There appears to be a past history of inpatient psychiatric hospitalization here 3 years ago. Outpatient psychiatric history: None reported Medical history: None reported Surgical history: vasectomy. Current medications: None Substance abuse history: Previous history of noted alcohol abuse along with methamphetamine abuse. There have been reported history of alcohol dependence with withdrawal symptoms. Family psychiatric history: Reported history of bipolar disorder in biological father per previous records also history of polysubstance abuse and 2 of his siblings. Legal history: Unknown Social history: Previous records indicate the patient was born in [place] and had completed up to 11th grade here. He had reported having previously been but is currently . He has children allegedly that live in [place] with their mother. He is currently unemployed. NPU Discharge summary from 09/08/21 SI Brief History: Gaurang Fan is a 36 year old male history of trauma and social anxiety along with moderate alcohol use and marijuana disorders and psychiatric medication noncompliance, who was admitted on a 96-hour hold last night because he was brought in by law enforcement intoxicated, belligerent, and making suicidal threats. The note from the ED states: 36-year-old male presents to the emergency room brought in by [facility]. They are 96-hour hold from the local [address]. Patient is acutely intoxicated he continues to make suicidal threats while here. Before a physician could go to the room and evaluate him security was monitoring him and he became very aggressive. Code 10 was called when I arrived in the room patient was making threats to others as well as to himself including threatening to kill himself. Explained to him that we wanted to try to help him. Ultimately we did give him Geodon and Ativan and he was placed in the restraint bed see the appropriate documentation in this chart as well as in the nursing chart. We were able to verbally de-escalate with him to some extent after he was placed in the restraint bed. He is still not safe to be removed at this time. Third 96-hour hold reviewed. According to the affidavits he has threatened to shoot himself in the past his family has had his firearms. The patient does not remember the events of last night. He does not remember saying he was going to kill himself. He says that he does not want to kill himself today. He is still quite shaky coming down on alcohol. He says he drank 1 pint of whiskey yesterday, but that is not likely given that his BAL was 405 when he arrived in the emergency room. I told him that level could be lethal to some people. He says he has been feeling quite depressed since his mother suddenly of a pulmonary embolism on 08/03/2021. He says he could look at pictures of her. He had poor sleep and weight loss. He said that his energy and motivation were okay and he denied feelings of helplessness, hopelessness or worthlessness. He also denied feeling suicidal over the past several weeks. The patient says that his gave him some of her Lexapro over the past 2+ weeks. He says initially it caused his head to swim, caused nausea, and he felt that people were talking about him. After a few days those side effects went away. He said that his grief about his mother's began to improve too. For instance, he was able to start looking at pictures of his mom. He denies any history of auditory or visual hallucinations. The patient denies any previous psychiatric treatment, however records indicate that he has seen Dr. Jorge Serrano at the [facility], with the last visit on 04/02/2021. Dr. Serrano had prescribed acamprosate but the patient had stopped taking it. He was drinking 1/2 pint or less of alcohol. He started using marijuana medical marijuana 2 or [address] Serrano discussed the problems with marijuana use and encouraged him to reconsider taking acamprosate. The patient indicated that he did not want to continue any treatment at that point. The patient denies any previous rehabilitation treatment for alcohol problems and says he has no history of DUI. He does say he has been drinking a pint of whiskey a day and gets shaky and sweaty if he stops drinking for a day. He denies any history of seizures or hallucinations. He says he also smokes marijuana daily. He denies methamphetamines and other drugs. He says he smokes 1 pack of cigarettes per day. This is a televisit for safety precautions related to coronavirus recommendations, I spent a total 15 minutes on his case today. He tells me that he has not been compliant with medications and he has not taken it in a couple months now. His sleep is 6 to 7 hours a night, he says he does drink alcohol once or twice a week and usually drinks 1/2 pint or less. He tells me that the taste of alcohol was not seem anymore, and I told him that that may be due to the acamprosate. He denies any suicidal or homicidal thoughts, he did acknowledge that he has been getting medical marijuana and uses it 2-3 times a week. We did discuss the problems with marijuana use and the tolerance and dependence risk associated with it along with cognitive decline. I encouraged him to reconsider the acamprosate if his alcohol use escalates, otherwise he is not interested in scheduling or medications at this time Psychiatric history: As above. He denies any past psychiatric hospitalizations. Substance use history: As above. Family history: The patient says that his biological father reportedly had a history of bipolar disorder and dementia, but he did not know him. He said both of his brothers have been addicted to meth. 1 from suicide 3 or 4 years ago. The other is in long term, but he does not know the reasons why. Psychosocial history: The patient says he was born in [place] and attended high school through the 11th grade here. He has dated his for 20 years and they have been for the past 4. They have children ages 16, 12, and 9 years old. 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 He likes that work because it is different every day. Legal history: He denies legal difficulties. Medical history: He says he takes lisinopril 20 mg daily for hypertension. He says he has had a vasectomy. Hospital Course Hospital Course He slowly acclimated to the individual, group and milieu therapies provided. He presented with significant psychosis recent alcohol use and significant psychosocial stressors at home. He was started on Zyprexa and had a positive response to his thought disorder. He was on a 96-hour hold and he excepted that he needed to be in the hospital and ultimately go to a sober living facility/inpatient rehab given his addiction as he presented with a positive UDS for methamphetamine and cannabis. He had a positive response to the medication. Thiamine was started for his alcohol use. He worked with the social work team to get appropriate aftercare and follow-up. They assisted him in getting a bed at [facility] and he was discharged there. He was able to contract for safety outside the hospital prior to discharge. During the hospitalization, patient had routine laboratory studies which were within normal limits except for few outliers. Additionally he had a general medical evaluation which was also within normal limits and revealed no new acute processes. Discharge Summary: At the time of discharge, he was absent psychosis or lethality. Mood and anxiety were well managed. Patient endorsed a plan to avoid all drugs of abuse and follow-up with the aftercare recommendations of the treatment team. Patient was evaluated and deemed to be absent credible lethality, and had achieved the maximum benefit from an inpatient hospitalization, so was discharged. Meds NPU Home Medications ?Medication ?Instructions ?Recorded ?Confirmed ?Last Taken ?Type ibuprofen 200 mg tablet (Advil) 800 mg PO Q6H PRN Feve r Or Pain 06/06/25 06/06/25 Unknown History Allergies Allergy/AdvReac Type Severity Reaction Status Date / Time No Known Allergies Allergy Verified 09/08/24 02:24 PFSH NPU 2 PFSH: Medical History (Updated 06/07/25 @ 17:32 by Aydin Alvarez MD) No pertinent family history Surgical History No pertinent past surgical history Social History Smoking and tobacco/nicotine status: current every day tobacco/nicotine user cigarettes Packs smoked per day: 1 Years cigarettes smoked: 20 Quit status (tobacco/nicotine): not considering quitting Second hand smoke exposure: No Current gender identity: Male Mental Status Exam 2 MSE Comments: The patient is a casually dressed white male who appeared his stated age. He had a disheveled appearance with extremely poor hygiene. There was no evidence of any abnormal involuntary motor movements, tics, or tremors appreciated. His speech was normal in rate and normal in volume. His thought process was mostly linear and logical. His thought content showed no evidence of homicidal or suicidal ideation. There was evidence of delusional thinking. There was evidence of ideas of reference and hyperreligiosity. He did not appear to be responding to internal stimuli. His mood was described as good. His affect was flat. He was alert and oriented to person place and time. His recent and remote memory appeared poor. His insight is impaired. His judgment is poor. His impulse control appeared poor. Vitals/I&O/Wt Last Vital Signs Temp 97.9 F 06/06/25 19:17 Pulse 68 06/07/25 06:00 Resp 16 06/07/25 06:00 BP 113/80 06/07/25 06:00 Pulse Ox 94 06/07/25 06:00 O2 Del Method Room Air 06/07/25 06:00 Weight last 48 hrs Weight 61.235 kg Data NPU 06/06/25 14:38 06/06/25 14:38 A&P Assessment and plan 1. Unspecified psychosis: 2. Depression, unspecified: Plan: 39-year-old male who presents with psychosis and continued decline in functioning currently not under influence of drugs. 1.? Patient refusing medications at this time. 2.??Recommend sober living treatment at the highest level of care to which the patient is willing to commit? 3. Continue every 15 minute checks for safety. 4.? Will attempt to gather collateral information. 5. Will evaluate in the context of 96 hour hold. PDMP PDMP Reviewed: Not Reviewed Involuntary Hold Information 2 Hold Status: Legal Status: 96 Hour Hold Date/Time Hold Expires: 06/10/25 @ 14:27 96 Hour Hold: 96 Hour Involuntary Admission: Yes Other Hold: Hold End Date: 10/04/24 Attestations NPU 2 Medical Necessity Statement*: Inpatient hospitalization is medically necessary and deemed to ?be ?the clinically appropriate intervention ?at this time.? We will monitor/initiate medications and make changes as indicated.? The patient will be in the hospital for over 2 midnights.? The patient?s likely length of stay 7-10 days. Coding Level of Care Code Acute Code for Chg Fwd Diagnoses Unspecified psychosis F29 Depression, unspecified F32.A
[2025-06-07 19:41] VITALS: BP 121/79; PULSE 84; RESP 16; TEMP 36.8; O2SAT 96
[2025-06-08 06:00] VITALS: BP 120/73; PULSE 72; RESP 16; O2SAT 99
[2025-06-08 14:00] VITALS: BP 119/89; PULSE 71; RESP 18; TEMP 36.6; O2SAT 99
--- NOTE | 2025-06-08 16:01 | P.NPUPN_ITS ---
Subjective NPU 2 Subjective: 39-year-old male admitted involuntarily with a history of psychosis along with polysubstance abuse. Patient had denied any recent drug use or alcohol use. He had continued to report being a sabianism person and stated that he should be allowed to live in what ever manner he wishes. He had denied refusing oral intake and appeared to be eating and drinking well here on the unit without any issue. He had reported some difficulties with trusting others. He had acknowledged having a significant change in his life over the past 5 to 6 years leading to him being unable to work, and losing his family but appeared unwilling to engage in any further examination as to why this was happening. He had denied any depression. He did not require any prn medication for aggression. Mental Status Exam 2 MSE Comments: The patient is a casually dressed white male who appeared his stated age. He had a disheveled appearance with limited hygiene. There was no evidence of any abnormal involuntary motor movements, tics, or tremors appreciated. His speech was normal in rate and normal in volume. His thought process was mostly linear and logical. His thought content showed no evidence of homicidal or suicidal ideation. There was evidence of delusional thinking. There was evidence of ideas of reference and hyperreligiosity. He did not appear to be responding to internal stimuli. His mood was described as good. His affect was irritable. He was alert and oriented to person place and time. His recent and remote memory appeared poor. His insight is impaired. His judgment is poor. His impulse control appeared poor. Vitals/I&O/Wt Last Vital Signs Temp 98 F 06/08/25 14:00 Pulse 71 06/08/25 14:00 Resp 18 06/08/25 14:00 BP 119/89 06/08/25 14:00 Pulse Ox 99 06/08/25 14:00 O2 Del Method Room Air 06/07/25 19:41 Data NPU 06/06/25 14:38 06/06/25 14:38 A&P Assessment and plan 1. Unspecified psychosis: 2. Depression, unspecified: Plan: 39-year-old male who presents with psychosis and continued decline in functioning currently not under influence of drugs. 1.? Patient refusing medications at this time. He is able to manage his own self care currently. 2.??Recommend sober living treatment at the highest level of care to which the patient is willing to commit? 3. Continue every 15 minute checks for safety. 4.? Will attempt to gather collateral information. 5. Will evaluate in the context of a 96 hour hold. PDMP PDMP Reviewed: Not Reviewed Involuntary Hold Information 2 Hold Status: Legal Status: 96 Hour Hold Date/Time Hold Expires: 06/10/25 @ 14:27 96 Hour Hold: 96 Hour Involuntary Admission: Yes Other Hold: Hold End Date: 10/04/24 Attestations NPU 2 Medical Necessity Statement*: Inpatient hospitalization is medically necessary and deemed to ?be ?the clinically appropriate intervention ?at this time.? We will monitor/initiate medications and make changes as indicated.? The patient?s likely length of stay 2-3 days. Coding Level of Care Code Acute Code for Chg Fwd Diagnoses Unspecified psychosis F29 Depression, unspecified F32.A
[2025-06-08 19:24] VITALS: BP 156/95; PULSE 66; RESP 18; TEMP 36.7; O2SAT 96
[2025-06-09 06:00] VITALS: BP 130/87; PULSE 65; RESP 16; TEMP 36.4; O2SAT 96
[2025-06-09 14:00] VITALS: BP 134/89; PULSE 86; RESP 16; TEMP 36.4; O2SAT 98
--- NOTE | 2025-06-09 17:53 | P.NPUPN_ITS ---
Subjective NPU 2 Subjective: 39-year-old male admitted involuntarily with a history of psychosis. The patient had been eating well and consuming fluids without any issues. He had reported no thoughts of hurting himself or others. He had stated that he would likely be homeless but chose to be that way at this time. He had no legal concerns. He reports that he does not wish to consider medications. He had denied any depression at this time. He had continued to report being latter day but did not discuss any of his latter day beliefs. He had reported adequate sleep. He had not been aggressive on the unit. Mental Status Exam 2 MSE Comments: The patient is a casually dressed white male who appeared his stated age. He had improved hygiene and normal gait. There was no evidence of any abnormal involuntary motor movements, tics, or tremors appreciated. His speech was normal in rate, rhythm and prosody. His thought process was mostly linear and logical. His thought content showed no evidence of homicidal or suicidal ideation. There was no evidence of delusional thinking. There was evidence of ideas of reference and hyperreligiosity. He did not appear to be responding to internal stimuli. His mood was described as good. His affect was euthymic He was alert and oriented to person, place, and time. His recent and remote memory appeared poor. His insight is impaired. His judgment is poor. His impulse control appeared fair. Vitals/I&O/Wt Last Vital Signs Temp 97.6 F 06/09/25 14:00 Pulse 86 06/09/25 14:00 Resp 16 06/09/25 14:00 BP 134/89 06/09/25 14:00 Pulse Ox 98 06/09/25 14:00 O2 Del Method Room Air 06/09/25 06:00 Data NPU 06/06/25 14:38 06/06/25 14:38 A&P Assessment and plan 1. Unspecified psychosis: 2. Depression, unspecified: Plan: 39-year-old male who presents with psychosis and continued decline in functioning currently not under influence of drugs. 1.? Patient refusing medications at this time. He is able to manage his own self care currently. 2.??Recommend sober living treatment at the highest level of care to which the patient is willing to commit? 3. Continue every 15 minute checks for safety. 4.? Will attempt to gather collateral information. 5. Will evaluate in the context of a 96 hour hold. PDMP PDMP Reviewed: Not Reviewed Involuntary Hold Information 2 Hold Status: Legal Status: 96 Hour Hold Date/Time Hold Expires: 06/10/25 @ 14:27 96 Hour Hold: 96 Hour Involuntary Admission: Yes Other Hold: Hold End Date: 10/04/24 Attestations NPU 2 Medical Necessity Statement*: Inpatient hospitalization is medically necessary and deemed to ?be ?the clinically appropriate intervention ?at this time.? We will monitor/initiate medications and make changes as indicated.? The patient?s likely length of stay 1-2 days. Coding Level of Care Code Acute Code for Chg Fwd Diagnoses Unspecified psychosis F29 Depression, unspecified F32.A
[2025-06-09 20:24] VITALS: BP 102/71; PULSE 60; RESP 16; TEMP 36.8; O2SAT 99
[2025-06-10 06:00] VITALS: BP 109/76; PULSE 60; RESP 18; TEMP 36.4; O2SAT 96
--- NOTE | 2025-06-10 13:54 | P.NPUDS_ITS ---
Diagnoses at Discharge Discharge Diagnosis 1. Unspecified psychosis: 2. Depression, unspecified: Reason for Visit Reason for Visit: 96 hour hold Brief History: History of Present Illness Gaurang Fan is a 39 year old male with a past history of 2 previous hospitalizations through the neuropsychiatric unit most recently in September 2020 for who presented to the emergency department on a 96-hour hold after an affidavit had been filled by a member of the patient's anabaptist. The patient had stated that he was at home when he was picked up by the police and was brought to the emergency department where he was evaluated and placed in the neuropsychiatric unit for further evaluation and treatment. According to the affidavit the patient has been residing in the home with substandard living conditions that appeared to be infested with bugs and flies. He has been living in a camper that has no electricity or heat. The keno writer of the affidavit had suggested that the patient had been refusing food or water without the help of others and had been endorsing that he was Tyson Wild to others around him. The patient on interview had stated that he was simply minding his own business. He reports occasional alcohol use and reports that he has at times used methamphetamine. His urine drug screen was negative for alcohol or any illicit drugs. He does acknowledge that he has homeless. He denies any diana. He did endorse that he had felt like jellyfish allowed humans to communicate with God in a more direct form. The patient states that he has not been taking any medications. The patient had minimized having any thoughts of hurting himself or others. He does report that he isolates himself from others. He reports having very little support from any family members. The patient had acknowledged a past history of depression and there was suggestion that the patient's behavior and ability to care for himself had declined after COVID. He reports that he is currently not working. He reports no substantiative changes since his last hospitalization 8 months ago. Current medications: None Excerpt from NPU Discharge summary from 09/15/2024. Discharge Diagnosis (1) Unspecified psychosis: Status: Acute (2) Drug-induced psychotic disorder: Status: Acute (3) Alcohol use disorder, moderate, depe ndence: Status: Chronic Reason for Visit hearing and seeing things Brief History: History of Present Illness Gaurang Fan is a 39 year old male who was brought to the emergency room accompanied by police after he had admitted to having used illicit drugs and appearing significantly confused. The patient was admitted involuntarily to the neuropsychiatric unit for further evaluation and treatment. The patient had stated that he was picked up by the police because he had made a complaint that the neighbors were involved in evil actions. The patient had reported that he is Tyson God and has control of . He reports that he has angels working for him and asked the keno writer of this note if he was not Pro. The patient reports that his aunt Kaylin Zurita has a jellyfish on her head that allows her to read and control the thoughts of others. He stated that everyone on the news or trying to poison him and stated that they were also trying to extract his blood. The patient is also stated that he was the lost son of Lindsay as he alluded to specific markings on his thumb that indicated a commonality of origin. The patient's urine drug screen had not been drawn at this time. He reports currently not being on medications. Inpatient psychiatric history: There appears to be a past history of inpatient psychiatric hospitalization here 3 years ago. Outpatient psychiatric history: None reported Medical history: None reported Surgical history: vasectomy. Current medications: None Substance abuse history: Previous history of noted alcohol abuse along with methamphetamine abuse. There have been reported history of alcohol dependence with withdrawal symptoms. Family psychiatric history: Reported history of bipolar disorder in biological father per previous records also history of polysubstance abuse and 2 of his siblings. Legal history: Unknown Social history: Previous records indicate the patient was born in [place] and had completed up to 11th grade here. He had reported having previously been but is currently . He has children allegedly that live in [place] with their mother. He is currently unemployed. NPU Discharge summary from 09/08/21 SI Brief History: Gaurang Fan is a 36 year old male history of trauma and social anxiety along with moderate alcohol use and marijuana disorders and psychiatric medication noncompliance, who was admitted on a 96-hour hold last night because he was brought in by law enforcement intoxicated, belligerent, and making suicidal threats. The note from the ED states: 36-year-old male presents to the emergency room brought in by [facility]. They are 96-hour hold from the local [address]. Patient is acutely intoxicated he continues to make suicidal threats while here. Before a physician could go to the room and evaluate him security was monitoring him and he became very aggressive. Code 10 was called when I arrived in the room patient was making threats to others as well as to himself including threatening to kill himself. Explained to him that we wanted to try to help him. Ultimately we did give him Geodon and Ativan and he was placed in the restraint bed see the appropriate documentation in this chart as well as in the nursing chart. We were able to verbally de-escalate with him to some extent after he was placed in the restraint bed. He is still not safe to be removed at this time. Third 96-hour hold reviewed. According to the affidavits he has threatened to shoot himself in the past his family has had his firearms. The patient does not remember the events of last night. He does not remember saying he was going to kill himself. He says that he does not want to kill hims elf today. He is still quite shaky coming down on alcohol. He says he drank 1 pint of whiskey yesterday, but that is not likely given that his BAL was 405 when he arrived in the emergency room. I told him that level could be lethal to some people. He says he has been feeling quite depressed since his mother suddenly of a pulmonary embolism on 08/03/2021. He says he could look at pictures of her. He had poor sleep and weight loss. He said that his energy and motivation were okay and he denied feelings of helplessness, hopelessness or worthlessness. He also denied feeling suicidal over the past several weeks. The patient says that his gave him some of her Lexapro over the past 2+ weeks. He says initially it caused his head to swim, caused nausea, and he felt that people were talking about him. After a few days those side effects went away. He said that his grief about his mother's began to improve too. For instance, he was able to start looking at pictures of his mom. He denies any history of auditory or visual hallucinations. The patient denies any previous psychiatric treatment, however records indicate that he has seen Dr. Jorge Serrano at the [facility], with the last visit on 04/02/2021. Dr. Serrano had prescribed acamprosate but the patient had stopped taking it. He was drinking 1/2 pint or less of alcohol. He started using marijuana medical marijuana 2 or [address] Serrano discussed the problems with marijuana use and encouraged him to reconsider taking acamprosate. The patient indicated that he did not want to continue any treatment at that point. The patient denies any previous rehabilitation treatment for alcohol problems and says he has no history of DUI. He does say he has been drinking a pint of whiskey a day and gets shaky and sweaty if he stops drinking for a day. He denies any history of seizures or hallucinations. He says he also smokes marijuana daily. He denies methamphetamines and other drugs. He says he smokes 1 pack of cigarettes per day. This is a televisit for safety precautions related to coronavirus recommendations, I spent a total 15 minutes on his case today. He tells me that he has not been compliant with medications and he has not taken it in a couple months now. His sleep is 6 to 7 hours a night, he says he does drink alcohol once or twice a week and usually drinks 1/2 pint or less. He tells me that the taste of alcohol was not seem anymore, and I told him that that may be due to the acamprosate. He denies any suicidal or homicidal thoughts, he did acknowledge that he has been getting medical marijuana and uses it 2-3 times a week. We did discuss the problems with marijuana use and the tolerance and dependence risk associated with it along with cognitive decline. I encouraged him to reconsider the acamprosate if his alcohol use escalates, otherwise he is not interested in scheduling or medications at this time Psychiatric history: As above. He denies any past psychiatric hospitalizations. Substance use history: As above. Family history: The patient says that his biological father reportedly had a history of bipolar disorder and dementia, but he did not know him. He said both of his brothers have been addicted to meth. 1 from suicide 3 or 4 years ago. The other is in penitentiary, but he does not know the reasons why. Psychosocial history: The patient says he was born in [place] and attended high school through the 11th grade here. He has dated his for 20 years and they have been for the past 4. They have children ages 16, 12, and 9 ye ars old. 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 He likes that work because it is different every day. Legal history: He denies legal difficulties. Medical history: He says he takes lisinopril 20 mg daily for hypertension. He says he has had a vasectomy. Hospital Course Hospital Course He slowly acclimated to the individual, group and milieu therapies provided. He presented with significant psychosis recent alcohol use and significant psychosocial stressors at home. He was started on Zyprexa and had a positive response to his thought disorder. He was on a 96-hour hold and he excepted that he needed to be in the hospital and ultimately go to a sober living facility/inpatient rehab given his addiction as he presented with a positive UDS for methamphetamine and cannabis. He had a positive response to the medication. Thiamine was started for his alcohol use. He worked with the social work team to get appropriate aftercare and follow-up. They assisted him in getting a bed at [facility] and he was discharged there. He was able to contract for safety outside the hospital prior to discharge. During the hospitalization, patient had routine laboratory studies which were within normal limits except for few outliers. Additionally he had a general medical evaluation which was also within normal limits and revealed no new acute processes. Discharge Summary: At the time of discharge, he was absent psychosis or lethality. Mood and anxiety were well managed. Patient endorsed a plan to avoid all drugs of abuse and follow-up with the aftercare recommendations of the treatment team. Patient was evaluated and deemed to be absent credible lethality, and had achieved the maximum benefit from an inpatient hospitalization, so was discharged. Hospital Course Hospital Course During the hospitalization, the patient had routine laboratory studies which were within normal limits except for a few outliers.? Additionally, there was a general medical evaluation which was also within normal limits and revealed no new acute processes.? At the time of discharge, lethality was denied and psychosis was present but did not appear to be interfering currently with his ability to manage basic self care. He did not wish to consider treatment for his delusional thinking. Mood and anxiety were well managed.? The patient endorsed a plan to avoid all drugs of abuse and follow up with the aftercare recommendations of the treatment team.? The patient was evaluated and deemed to be absent credible lethality and had achieved the maximum benefit from an [facility] hospitalization, and so was discharged. ? Involuntary Hold Information Hold Status: Legal Status: 96 Hour Hold Date/Time Hold Expires: 06/10/25 @ 14:27 96 Hour Hold: 96 Hour Involuntary Admission: Yes Other Hold: Hold End Date: 10/04/24 Mental Status Exam MSE Comments: The patient is a casually dressed white male who appeared his stated age. He had improved hygiene and normal gait. There was no evidence of any abnormal involuntary motor movements, tics, or tremors appreciated. His speech was normal in rate, rhythm and prosody. His thought process was mostly linear and logical. His thought content showed no evidence of homicidal or suicidal ideation. There was evidence of ideas of reference and some methodist delusions. He did not appear to be responding to internal stimuli. His mood was described as good. His affect was euthymic on discharge. He was alert and oriented to person, place, and time. His recent and remote memory appeared poor. His insight is impaired. His judgment is fair. His impulse control appeared fair. Discharge Data Studies Completed and Pending: Laboratory Results WBC 8.51 10^3/uL (3.2 9-11.43) 06/06/25 14:38 RBC 5.39 10^6/uL (3.8 5-5.65) 06/06/25 14:38 Hgb 16.70 g/dL (11.27 -16.99) 06/06/25 14:38 Hct 47.5 % (37-53) 06/06/25 14:38 MCV 88.1 fl (82-101) 06/06/25 14:38 MCH 31.0 pg (27-33) 06/06/25 14:38 MCHC 35.2 g/dL (30-55) 06/06/25 14:38 RDW 12.9 % (12.1-15.1 ) 06/06/25 14:38 Plt Count 355 10^3/cmm (157 -399) 06/06/25 14:38 MPV 10.5 fL (7.4-10.4 ) H 06/06/25 14:38 Neut % (Auto) 52.9 % 06/06/25 14:38 Lymph % (Auto) 35.4 % 06/06/25 14:38 Island % (Auto) 8.3 % 06/06/25 14:38 Eos % (Auto) 1.9 % 06/06/25 14:38 Baso % (Auto) 1.3 % 06/06/25 14:38 Neut # (Auto) 4.50 10^3/uL (1.8 -7.7) 06/06/25 14:38 Lymph # (Auto) 3.0 10^3/uL (0.8- 4.8) 06/06/25 14:38 Island # (Auto) 0.7 10^3/uL (0.2- 0.9) 06/06/25 14:38 Eos # (Auto) 0.2 10^3/uL (0.0- 0.8) 06/06/25 14:38 Baso # (Auto) 0.1 10^3/uL (0.0- 0.1) 06/06/25 14:38 Nucleated RBC % (a uto) 0 % 06/06/25 14:38 Nucleated RBCs # 0.0 /100WBC 06/06/25 14:38 Sodium 143 mmol/L (136-1 45) 06/06/25 14:38 Potassium 3.5 mmol/L (3.5-5 .1) 06/06/25 14:38 Chloride 104 mmol/L (98-10 7) 06/06/25 14:38 Carbon Dioxide 24 mmol/L (22-29) 06/06/25 14:38 Anion Gap 18.5 (5-19) 06/06/25 14:38 BUN 14 mg/dL (6-20) 06/06/25 14:38 Creatinine 0.8 mg/dL (0.7-1. 2) 06/06/25 14:38 GFR Calculation 108.2 mL/min (90- 130) 06/06/25 14:38 Glucose 111 mg/dL (65-115 ) 06/06/25 14:38 Calculated Osmolal ity 297 mOsm/kg (285- 295) H 06/06/25 14:38 Calcium 10.0 mg/dL (8.5-1 0.5) 06/06/25 14:38 Total Bilirubin 0.2 mg/dL (0.15-1 .2) 06/06/25 14:38 AST 13 U/L (0-40) 06/06/25 14:38 ALT 14 U/L (0-41) 06/06/25 14:38 Alkaline Phosphata se 90 U/L (40-130) 06/06/25 14:38 Total Protein 7.7 g/dL (6.6-8.7 ) 06/06/25 14:38 Albumin 4.6 g/dL (3.5-5.2 ) 06/06/25 14:38 Globulin 3.1 g/dL (1.3-4.6 ) 06/06/25 14:38 Salicylates < 0.3 mg/dL (3-10 ) L 06/06/25 14:38 Urine Opiates Scre en Negative ng/mL (N egative) 06/06/25 15:21 Acetaminophen < 5.0 ug/mL (10-3 0) L 06/06/25 14:38 Ur Barbiturates Sc reen Negative ng/mL (N egative) 06/06/25 15:21 Ur Phencyclidine S crn Negative ng/mL (N egative) 06/06/25 15:21 Ur Amphetamines Sc reen Negative ng/mL (N egative) 06/06/25 15:21 U Benzodiazepines Scrn Negative ng/mL (N egative) 06/06/25 15:21 Urine Cocaine Scre en Negative ng/mL (N egative) 06/06/25 15:21 U Marijuana (THC) Screen Positive ng/mL (N egative) H 06/06/25 15:21 Ethyl Alcohol < 10 mg/dL (0-10) 06/06/25 14:38 Vitals: Last Vital Signs Temp 97.6 F 06/10/25 06:00 Pulse 60 06/10/25 06:00 Resp 18 06/10/25 06:00 BP 109/76 06/10/25 06:00 Pulse Ox 96 06/10/25 06:00 O2 Del Method Room Air 06/10/25 06:00 Discharge Plan Discharge Patient Disposition: Home Condition: Stable Prescriptions: Continued ibuprofen [Advil] 200 mg Tablet 800 mg PO Q6H PRN (Reason: Fever Or Pain) Discharge Order = DC NOW: Discharge Order (Routine); Ordered 06/10/25 Ordered By: Aydin Alvarez Referrals: [facility] Discharge Team [Other] Referral Note: Call for assistance. [facility] [Outside, Behavioral Health] - 06/15/25 2:30 pm Referral Note: Initial appointment with Georgia Li. Discharge Diet: Usual diet Discharge Activity: Resume usual activity Patient Instructions: Opioid Safety, Patient Portal & [place] Instructions Discharge Attestations NPU Time Spent in Discharge Care*: less than 30 min Specific Discharge Activities: Specific discharge activities: educating patient, discussing with outsole caser/social workers/dc planners and documenting/other paperwork Status at Discharge: Cognitive status at discharge: cognitively intact , Behavioral status at discharge: cooperative , Coding Level of Care Code Acute Code for Chg Fwd Diagnoses Unspecified psychosis F29 Depression, unspecified F32.A
[2025-06-10 14:19] VITALS: BP 109/76; PULSE 60; RESP 18; TEMP 36.4; O2SAT 96
== END 2025-06-10 14:27 | disposition home or self-care (01) | DRG 885 ==
LOC: ER 14:50 → NP 16:03
PROVIDERS: Admitting Provider Psychiatry & Neurology Psychiatry; Emergency Provider Emergency Medicine; Visit Provider Psychiatry & Neurology Psychiatry
DX: F29 Unspecified psychosis not due to a substance or known physiological condition (principal); Z59.00 Homelessness unspecified; F17.210 Nicotine dependence, cigarettes, uncomplicated; F10.11 Alcohol abuse, in remission; F15.11 Other stimulant abuse, in remission; Z81.8 Family history of other mental and behavioral disorders; Z91.51 Personal history of suicidal behavior
CPT/HCPCS: 36415; 80053; 80306; 80307; 85025; 97150; 97165; 99285; J9999